=== PATIENT | male | born 1940 | race Caucasian/White ===

== ENCOUNTER 2017-09-18 09:03 | Outpatient (RCR) | payer MEDICARE ==
[2017-10-22] MEDS ORDERED: WARF-48 PO (12:59)
[2017-10-22] MEDS ORDERED: FOLI0.4T2 PO (12:59)
[2017-10-22] MEDS ORDERED: FLUT1DIS27 IH (12:59)
[2017-10-22] MEDS ORDERED: MONT10TA21 PO (12:59)
[2017-10-22] MEDS ORDERED: ARFO15VI3 IH (12:59)
[2017-10-22] MEDS ORDERED: TERA5CAP3 PO (12:59)
[2017-10-22] MEDS ORDERED: CITA40TA19 PO (12:59)
[2017-10-22] MEDS ORDERED: WARF4TAB70 PO (12:59)
[2017-10-22] MEDS ORDERED: OMEP20CA12 PO (12:59)
[2017-10-22] MEDS ORDERED: TIOT18CA2 IH (12:59)
[2017-10-22] MEDS ORDERED: ASPI-586 PO (12:59)
[2017-10-22] MEDS ORDERED: RT-ALBUINH IH (12:59)
[2017-10-22] MEDS ORDERED: ATOR20TA66 PO (12:59)
[2017-10-22] MEDS ORDERED: GUAI120013 PO (12:59)
[2017-10-22] MEDS ORDERED: SOTA80TA PO (12:59)
[2017-10-22] MEDS ORDERED: IPRA0.2S51 IH (12:59)
[2017-10-22] MEDS ORDERED: FEXO180T84 PO (12:59)
[2017-10-22] MEDS ORDERED: [UNRECOGNIZED DRUG - CODE] PO (12:59)
== END 2017-12-17 | disposition home or self-care (01) ==
LOC: CARD 09:03
PROVIDERS: ATTEND Internal Medicine Interventional Cardiology
DX: I48.0 Paroxysmal atrial fibrillation (principal); I25.10 Atherosclerotic heart disease of native coronary artery without angina pectoris; R06.00 Dyspnea, unspecified
CPT/HCPCS: 93225; 93226

== ENCOUNTER → 2017-09-18 | Outpatient (CLI) | payer MEDICARE | LOC: CARD 08:54 | PROVIDERS: ATTEND Internal Medicine Interventional Cardiology | DX: I48.0 Paroxysmal atrial fibrillation (principal); I25.10 Atherosclerotic heart disease of native coronary artery without angina pectoris; R06.00 Dyspnea, unspecified | CPT/HCPCS: 93306 ==

== ENCOUNTER 2017-10-22 05:57 | Outpatient (CLI) | payer MEDICARE ==
[~2017-10-22] VITALS: Ht 177.8 cm; Wt 90.7 kg
[2017-10-22] MEDS ORDERED: FLUT1DIS27 IH (12:59)
[2017-10-22] MEDS ORDERED: CITA40TA19 PO (12:59)
[2017-10-22] MEDS ORDERED: WARF-48 PO (12:59)
[2017-10-22] MEDS ORDERED: [UNRECOGNIZED DRUG - CODE] PO (12:59)
[2017-10-22] MEDS ORDERED: IPRA0.2S51 IH (12:59)
[2017-10-22] MEDS ORDERED: ASPI-586 PO (12:59)
[2017-10-22] MEDS ORDERED: WARF4TAB70 PO (12:59)
[2017-10-22] MEDS ORDERED: FOLI0.4T2 PO (12:59)
[2017-10-22] MEDS ORDERED: GUAI120013 PO (12:59)
[2017-10-22] MEDS ORDERED: RT-ALBUINH IH (12:59)
[2017-10-22] MEDS ORDERED: ATOR20TA66 PO (12:59)
[2017-10-22] MEDS ORDERED: OMEP20CA12 PO (12:59)
[2017-10-22] MEDS ORDERED: SOTA80TA PO (12:59)
[2017-10-22] MEDS ORDERED: TIOT18CA2 IH (12:59)
[2017-10-22] MEDS ORDERED: MONT10TA21 PO (12:59)
[2017-10-22] MEDS ORDERED: FEXO180T84 PO (12:59)
[2017-10-22] MEDS ORDERED: TERA5CAP3 PO (12:59)
[2017-10-22] MEDS ORDERED: ARFO15VI3 IH (12:59)
== END 2017-10-22 13:02 ==
LOC: PREOP 05:57
PROVIDERS: ATTEND Surgery
DX: Z01.818 Encounter for other preprocedural examination (principal); Z12.11 Encounter for screening for malignant neoplasm of colon

== ENCOUNTER 2017-10-28 08:18 | Day surgery (SDC) | payer MEDICARE ==
[~2017-10-28] VITALS: Ht 177.8 cm; Wt 90.7 kg
[~2017-10-28 08:18] MED LIST: ARFO15VI3 IH; ASPI-586 PO; ATOR20TA66 PO; CITA40TA19 PO; FEXO180T84 PO; FLUT1DIS27 IH; FOLI0.4T2 PO; GUAI120013 PO; IPRA0.2S51 IH; MONT10TA21 PO; OMEP20CA12 PO; RT-ALBUINH IH; SOTA80TA PO; TERA5CAP3 PO; TIOT18CA2 IH; WARF-48 PO; WARF4TAB70 PO; [UNRECOGNIZED DRUG - CODE] PO
--- OUTSIDE RECORDS SUMMARY | 2017-10-28 08:23 | XMS REPORT | Continuity of Care Document ---
Author Author [facility] Organization [facility] Address Unknown Phone Unavailable Care Team Providers Care Scooping Machine Tender Name Role Phone Colt Ariel E Unavailable Insurance Providers Payer Name Policy Number Subscriber Name Relationship MEDICARE INPT AND OUTPT [facility] [id number] DESI HARO SELF / SAME PATIENT [facility] [id number] DESI HARO SELF / SAME PATIENT Advance Directives Directive Response Recorded Date/Time Advance Directives: Yes 09/13/16 12:17pm Type: Living Will 09/13/16 12:17pm Chief Complaint and Reason for Visit Reason for Visit ACUTE Problems Active Medical Problems Problem Onset Date Recorded Date Status COPD exacerbation Unknown 09/13/16 Active Medications Current Home Medications Medication Dose Units Route Directions Days/Qty Instructions Start Date Albuterol (Albuterol 0.083% Neb Soln) 2.5 MG/3 ML VIAL.NEB 2.5 MG IH As needed PRN wheezing Albuterol (Ventolin HFA) 90 MCG/ACTUATION INHALER 2 PUFF IH Four times daily Albuterol/Ipratropium (Albuterol/Ipratripium Nebule) 3 MG/0.5 MG VIAL 1 VIAL IH Four times daily 1 (3 MG-0.5 MG/3 ML=1 VIAL) 09/16/16 Arformoterol Tartrate (Brovana) 15 MCG/2 ML VIAL 15 MCG IH Twice daily Aspirin (Aspir-Low) 81 MG TABLET. 81 MG PO Once daily Atorvastatin (Lipitor) 40 MG TABLET 40 MG PO At bedtime Citalopram HBr (CeleXA) 40 MG TABLET 40 MG PO Once daily Fexofenadine Hydrochloride (Estefania) 180 MG TAB 180 MG PO Once daily Fluticasone Propionate 16 GM SPRAY.SUSP 2 SPRAY NIRMALA Twice daily Fluticasone/Salmeterol (Advair 500-50 Diskus) 1 EACH BLST.W.DEV 1 PUFF INH Twice daily Folic Acid (Folic Acid 400MCG) 0.4 MG TAB 400 MCG PO Once daily Montelukast Sodium (Singulair 10MG) 10 MG TAB 10 MG PO At bedtime Multivitamin (Duo-Kaps) 1 CAP CAP 1 TAB PO Once daily Nitroglycerin (Nitrostat .4mg Sl) 0.4 MG/TAB TAB.SUBL 0.4 TAB SL See instructions PRN CHEST PAIN 1 TAB Q 5 MIN FOR CHEST PAIN, UP TO 3 TABS. OXYMETAZOLINE HCL (Afrin) 15 ML SPRAY 30 ML NS Three times per day Omeprazole (Prilosec) 20 MG CAPSULE 20 MG PO At bedtime SOTALOL HCL (Sotalol) 120 MG TABLET 120 MG PO Twice daily Terazosin Hydrochloride (Terazosin Hcl) 5 MG TAB 5 MG PO At bedtime Tiotropium [place] (Spiriva) 18 MCG CAPSULE 1 CAP IH Once daily Warfarin (Coumadin 5MG) 5 MG TABLET 5 MG PO Once daily guaiFENesin ER (Mucinex) 600 MG TAB.ER.12H 600 MG PO Twice daily predniSONE 20 MG TABLET 20 MG PO Once daily 21 3 tabs x3 days, 2 tabs x3 days, 1 tab x3 days, 1/2 tab x3 days 09/16/16 Past Home Medications Medication Directions Ordered Status Albuterol (Ventolin Hfa Inhaler) Inh Inh, 2 Puff Nirmala Four times daily Unknown Discontinued Aspirin 325 Mg Tablet Tablet, 325 Mg Po Once daily Unknown Discontinued Fexofenadine Hcl (Estefania 180MG) 180 Mg Tablet Tablet, 180 Mg Po Once daily Unknown Discontinued Metoprolol Succinate (Toprol Xl 25MG) 25 Mg Tab.er.24h Tab.er.24h, 25 Mg Po At bedtime Unknown Discontinued Levofloxacin (Levaquin) 500 Mg Tablet Tablet, 500 Mg Po Once daily Unknown Discontinued Prednisone 20 Mg Tablet Tablet, 60 Mg Po Unknown Discontinued Family History Relationship Name Date of Condition Age ( At Onset ) Cause of Age ( At ) Age Gender Recorded Date/Time MOTHER Family history of mental disorder Heart attack F 05/20 1501 MOTHER Family history of ischemic heart disease or other disease of circulatory system Heart attack F 09/13/16 1501 Social History Problem Response Recorded Date Exposure to Occupational hazards: N 09/13/16 Query Response Start Date Stop Date Smoking status: Current every day smoker Hospital Discharge Instructions Providers Instructions Provider's Instructions 1. Prednisone taper as directed. 2. Use nebulizer 4 times daily until seen by Dr. Gregory. 3. No antibiotics necessary this is a acute flare of your chronic COPD. 4. Use the insentive spirometer and acapella at least 4 times per day. 5. Continue the Mucinex as well. Activity As tolerated Discharge Diet Regular Follow up Appointment Dr. Gregory FridaySep 23 at 9am Plan of Care - Discharge Problem: Shortness of breath Goal: Independent self care Instructions: Follow discharge instructions from provider Plan of Care Discharge Date 09/16/16 Disposition HOME, SELF CARE, ASST LIVING Prescriptions See Medications Section Care Plan and Goals See Discharge Instructions section Functional Status Query Response Date Recorded Paralysis: N September 16, 2016 7:55am Steady Gait: Y September 16, 2016 7:55am Weakness: N September 16, 2016 7:55am Hand Community Engagement Representative Equal: Y September 16, 2016 7:55am Contractures: N September 16, 2016 7:55am Alert: Y September 16, 2016 7:55am Oriented x4: Y September 16, 2016 7:55am Disoriented/Confused: N September 16, 2016 7:55am Drowsy: N September 16, 2016 7:55am Lethargic: N September 16, 2016 7:55am Unresponsive: N September 16, 2016 7:55am Allergies, Adverse Reactions, Alerts Allergen Type Severity Reaction Status Last Updated oxycodone Allergy Unknown Active 09/13/16 acetaminophen Allergy Unknown Active 09/13/16 Immunizations Name Date Given Type . Vaccine current Historical Vital Signs Vital Reading Collection Date/Time Result Blood Pressure 09/16/16 6:31am 119/77 Blood Pressure Source 09/16/16 6:31am Supine Patient Temperature 09/16/16 6:31am 97.8 Temperature Source 09/16/16 6:31am Oral Respiratory Rate 09/16/16 6:31am 18 Pulse Rate 09/16/16 6:31am 56 Pulse Location 09/16/16 6:31am Machine Bedside Pulse Oximetry 09/16/16 8:04am 95 Height 09/13/16 12:17pm 180.3 cm Height 09/13/16 12:17pm 5 ft 11 in Weight 09/13/16 12:17pm 94.2 kg Weight 09/13/16 12:17pm 207.3 lb Body Mass Index 09/13/16 12:17pm 29.0 Results Laboratory Results Test Name Result Units Flags Reference Collection Date/Time Result Date/ Time Comments Prothrombin Time 24.8 SECONDS H 9.0-12.0 09/16/16 7:32am 09/16/16 8: 03am INR International Normalized Ratio 2.5 09/16/16 7:32am 09/16/16 8: 03am White Blood Count 13.4 K/mm3 H 4.8-10.8 09/16/16 6:08am 09/16/16 7:16am Red Blood Count 4.17 M/mm3 L 4.20-5.60 09/16/16 6:08am 09/16/16 7:16am Hemoglobin 14.7 g/dL 13.5-18.0 09/16/16 6:08am 09/16/16 7:16am Hematocrit 41.2 % L 42.0-52.0 09/16/16 6:08am 09/16/16 7:16am Mean Corpuscular Volume 99 fl 78-100 09/16/16 6:08am 09/16/16 7:16am Mean Corpuscular Hemoglobin 35 pg H 27-31 09/16/16 6:08am 09/16/16 7: 16am Mean Corpuscular Hemoglobin Concent 36 g/dL 33-37 09/16/16 6:08am 09/16 7:16am Red Cell Distribution Width 12.9 % 11.5-14.5 09/16/16 6:08am 09/16/16 7 :16am Platelet Count 184 K/mm3 130-400 09/16/16 6:08am 09/16/16 7:16am Mean Platelet Volume 9.3 fl 7.4-10.4 09/16/16 6:08am 09/16/16 7:16am Differential Total Cells Counted 100 09/16/16 6:08am 09/16/16 7: 51am Band Neutrophils % 3 % 0-10 09/16/16 6:08am 09/16/16 7:51am Neutrophils % (Manual) 77 % H 42-75 09/16/16 6:08am 09/16/16 7:51am Lymphocytes 8 % *L 20-51 09/16/16 6:08am 09/16/16 7:51am Monocytes % (Manual) 12 % *H 3-10 09/16/16 6:08am 09/16/16 7:51am Platelet Estimate NORMAL NORMAL 09/16/16 6:08am 09/16/16 7:51am Target Cells 1+ 09/16/16 6:08am 09/16/16 7:51am Glucose Level 121 mg/dL H 75-110 09/16/16 6:08am 09/16/16 7:16am Blood Urea Nitrogen 16 mg/dL 9-20 09/16/16 6:08am 09/16/16 7:16am Creatinine 0.8 mg/dL 0.8-1.5 09/16/16 6:08am 09/16/16 7:16am Estimated GFR () 114 09/16/16 6:08am 09/16/16 7: 16am Estimated GFR (Non- 94 09/16/16 6:08am 09/16/16 7: 16am eGFR Interpretation: Chronic Kidney Disease=CKD CKD STAGE I > or=90 mL/min/1.73 square meters STAGE II 60 - 89 STAGE III 30 - 59 STAGE IV 15 - 29 STAGE V <15 NOTE: The MDRD Study equation has not been validated for use with the elderly (over 70 years of age), women, patients with serious comorbid conditions, or persons with extremes of body size, muscle mass, or nutritional status. BUN/Creatinine Ratio 20.9 6.0-26.0 09/16/16 6:08am 09/16/16 7:16am Sodium Level 140 mmol/L 137-145 09/16/16 6:08am 09/16/16 7:16am Potassium Level 3.9 mmol/L 3.6-5.0 09/16/16 6:08am 09/16/16 7:16am Chloride Level 103 mmol/L 98-107 09/16/16 6:08am 09/16/16 7:16am Carbon Dioxide Level 31 mmol/L H 22-30 09/16/16 6:08am 09/16/16 7:16am Calcium Level 8.4 mg/dL 8.4-10.2 09/16/16 6:08am 09/16/16 7:16am Arterial Blood pH 7.43 pH units 7.35-7.45 09/13/16 12:38pm 09/13/16 12: 52pm Arterial Blood Partial Pressure CO2 37 mmHg 34-45 09/13/16 12:38pm 05/20 12:52pm Arterial Blood Partial Pressure O2 66 mmHg L 75-85 09/13/16 12:38pm 05/20 12:52pm Arterial Blood Base Excess 0.4 mmHg -2-2 09/13/16 12:38pm 09/13/16 12: 52pm Arterial Blood HCO3 24 mmol/L -09/13/16 12:38pm 09/13/16 12:52pm White Blood Count 6.1 K/mm3 4.8-10.8 09/13/16 11:05am 09/13/16 11:21am Red Blood Count 4.76 M/mm3 4.20-5.60 09/13/16 11:05am 09/13/16 11:21am Hemoglobin 16.3 g/dL 13.5-18.0 09/13/16 11:05am 09/13/16 11:21am Hematocrit 48.0 % 42.0-52.0 09/13/16 11:05am 09/13/16 11:21am Mean Corpuscular Volume 101 fl H 78-100 09/13/16 11:05am 09/13/16 11: 21am Mean Corpuscular Hemoglobin 34 pg H 27-31 09/13/16 11:05am 09/13/16 11: 21am Mean Corpuscular Hemoglobin Concent 34 g/dL 33-37 09/13/16 11:05am 05/20 11:21am Red Cell Distribution Width 12.8 % 11.5-14.5 09/13/16 11:05am 09/13/16 11:21am Platelet Count 184 K/mm3 130-400 09/13/16 11:05am 09/13/16 11:21am Mean Platelet Volume 9.1 fl 7.4-10.4 09/13/16 11:05am 09/13/16 11:21am Absolute Neutrophils (auto) 50.1 % 42.0-75.2 09/13/16 11:05am 09/13/16 11:21am Lymphocytes % 25.6 % 20.0-51.0 09/13/16 11:05am 09/13/16 11:21am Monocytes % 14.2 % *H 1.0-10.0 09/13/16 11:05am 09/13/16 11:21am Eosinophils % 9.6 % *H 0.0-4.0 09/13/16 11:05am 09/13/16 11:21am Basophils % 0.2 % 0.0-2.0 09/13/16 11:05am 09/13/16 11:21am JON # 3.0 1.40-6.50 09/13/16 11:05am 09/13/16 11:21am Lymphocytes # 1.6 1.50-4.00 09/13/16 11:05am 09/13/16 11:21am Monocytes # 0.9 H 0.20-0.80 09/13/16 11:05am 09/13/16 11:21am Eosinophils # 0.6 H 0.04-0.40 09/13/16 11:05am 09/13/16 11:21am Basophils # 0.0 *L 0.02-0.10 09/13/16 11:05am 09/13/16 11:21am Glucose Level 98 mg/dL 75-110 09/13/16 11:05am 09/13/16 11:31am Blood Urea Nitrogen 9 mg/dL 9-20 09/13/16 11:05am 09/13/16 11:31am Creatinine 0.9 mg/dL 0.8-1.5 09/13/16 11:05am 09/13/16 11:31am Estimated GFR () 99 09/13/16 11:05am 09/13/16 11: 31am Estimated GFR (Non- 82 09/13/16 11:05am 09/13/16 11 :31am eGFR Interpretation: Chronic Kidney Disease=CKD CKD STAGE I > or=90 mL/min/1.73 square meters STAGE II 60 - 89 STAGE III 30 - 59 STAGE IV 15 - 29 STAGE V <15 NOTE: The MDRD Study equation has not been validated for use with the elderly (over 70 years of age), women, patients with serious comorbid conditions, or persons with extremes of body size, muscle mass, or nutritional status. BUN/Creatinine Ratio 10.5 6.0-26.0 09/13/16 11:05am 09/13/16 11:31am Sodium Level 141 mmol/L 137-145 09/13/16 11:05am 09/13/16 11:31am Potassium Level 4.6 mmol/L 3.6-5.0 09/13/16 11:05am 09/13/16 11:31am Chloride Level 100 mmol/L 98-107 09/13/16 11:05am 09/13/16 11:31am Carbon Dioxide Level 31 mmol/L H 22-30 09/13/16 11:05am 09/13/16 11: 31am Calcium Level 8.9 mg/dL 8.4-10.2 09/13/16 11:05am 09/13/16 11:31am Procedures No Known History of Procedures. Encounters Encounter Location Arrival/Admit Date Discharge/Depart Date Attending Provider Discharged Inpatient [facility] 09/13/16 11:59am 09/16/16 9:13am Ariel Gregory Registered Clinical [facility] 09/13/16 10:59am RICHY LUNDBERG APRN Encounter Diagnosis Onset Date COPD exacerbation
--- OUTSIDE RECORDS SUMMARY | 2017-10-28 08:23 | XMS REPORT | Continuity of Care Document ---
[facility] Organization [facility]. Address Unknown Phone Unavailable Care Team Providers Care Dialysis Patient Care Technician Name Role Phone Ariel Gregory Unavailable Insurance Providers Payer Name Policy Number Subscriber Name Relationship MEDICARE INPT & OUTPT [id number] DESI HARO SELF / SAME PATIENT [facility] [id number] DESI HARO SELF / SAME PATIENT Advance Directives Directive Response Recorded Date/Time Type: Durable Power of Injection Maintenance Technician 03/15/16 8:54am If Other explain: Health care decisions - said copy should be in chart 03/15/16 8:54am Chief Complaint and Reason for Visit Reason for Visit DIRECT ADMIT Problems Active Medical Problems Problem Onset Date Recorded Date Status Atrial fibrillation 12/26/15 12/26/15 Active TIA (transient ischemic attack) Unknown 12/26/15 Active Atrial fibrillation and flutter Unknown 12/26/15 Active Medications Current Home Medications Medication Dose Units Route Directions Days/Qty Instructions Start Date Albuterol (Ventolin HFA) 90 MCG/PUFF MDI 2 PUFF IH Every six hours PRN WHEEZING Arformoterol (Brovana Neb Soln) 15 MCG/2 ML AMPUL.NEB. 15 MCG IH Twice daily Aspirin (Aspirin Chewable) 81 MG TAB.CHEW 81 MG PO Once a day 30 12/26 Atorvastatin (Lipitor) 40 MG TABLET 40 MG PO Daily at bedtime Citalopram (CeleXA) 40 MG TABLET 40 MG PO Once a day Fexofenadine (Estefania) 180 MG TABLET 180 MG PO Once a day Fluticasone Propionate (Flonase Nasal [place]) 16 G BOTTLE 2 SPRAY NS Twice daily Fluticasone/Salmeterol (Advair Diskus) 500 MCG/50 MCG DISKUS 1 CAP IH Twice daily Folic Acid 400 MCG TABLET 400 MCG PO Once a day Montelukast (Singulair) 10 MG TABLET 10 MG PO Daily at bedtime Multimineral/Multivitamin (Centrum Silver) 1 EACH TABLET 1 EACH PO Once a day Nicotine (Nicoderm CQ) 21 MG/24 HR PATCH 21 MG TD Once a day Change daily in the AM, remove old patch Omeprazole (PriLOSEC) 20 MG CAPSULE 20 MG PO Once a day Sotalol (Betapace) 120 MG TABLET 120 MG PO Twice daily Terazosin (Hytrin) 5 MG CAPSULE 5 MG PO Daily at bedtime Tiotropium (Spiriva Handihaler) 18 MCG CAP.INH 1 CAP IH Once a day 30 Warfarin (Coumadin) 2.5 MG TABLET 2.5 MG PO MoWe@2100 For BLOOD THINNER Warfarin (Coumadin) 5 MG TABLET 5 MG PO TUTHSASU@2100 guaiFENesin ER (Mucinex) 1,200 MG TAB.SR.12H 1,200 MG PO Twice daily Past Home Medications Medication Directions Ordered Status Aspirin (Aspirin E.c.) 325 Mg Ect Ect, 325 Mg Po Once daily Unknown Discontinued Aspirin Ec (Ecotrin) 325 Mg Tablet.ec Tablet.ec, 325 Mg Po Once a day Unknown Discontinued Atorvastatin Calcium (Apilrnf02fl) 40 Mg Tab Tab, 40 Mg Po Once daily Unknown Discontinued Calcium Carbonate 500 Mg Ctb Ctb, 500 Mg Po Once daily Unknown Discontinued Citalopram (Celexa) 40 Mg Tablet Tablet, 40 Mg Po Once daily Unknown Discontinued Fluticasone Propionate/Sal[place] (Advair 250/50 Diskus) 28 Diskus Disk.w.dev Disk.w.dev, 28 Diskus Ih Twice daily Unknown Discontinued Fexofenadine (Estefania) 180 Mg Tablet Tablet, 180 Mg Po Once daily Unknown Discontinued Folic Acid (Folic Acid 1MG) 1 Mg Tab Tab, 1 Mg Po Once daily Unknown Discontinued Metoprolol (Er) Succinate (Toprol Xl) 50 Mg Tablet Tablet, 50 Mg Po At bedtime Unknown Discontinued Metoprolol Succinate (Toprol Xl) [address], 50 Mg Po Once daily Unknown Discontinued Montelukast Sodium (Singulair 10MG) 10 Mg Tab Tab, 10 Mg Po Once daily Unknown Discontinued Multimineral/Multivitamin (Centrum Silver) 1 Tab Tab Tab, 1 Tab Po Once daily Unknown Discontinued Omeprazole (Prilosec) 20 Mg Capsule Capsule, 20 Mg Po Once daily Unknown Discontinued Terazosin Hydrochloride (Terazosin) 5 Mg Cap Cap, 5 Mg Po At bedtime Unknown Discontinued Family History Relationship Name Date of Condition Age ( At Onset ) Cause of Age ( At ) Age Gender Recorded Date/Time Family history of malignant neoplasm Unknown 12/26/15 2308 Social History Problem Response Recorded Date Exposure to Occupational hazards: Y 03/15/16 Occupation/Former Occupation: [employer]-Retired 03/15/16 Hospital Discharge Instructions Plan of Care Problem: AFIB Goal: TO CONVERT TO NSR Instructions: CONTINUE TO TAKE MEDICATION PRESCRIBED Plan of Care Discharge Date 03/17/16 Disposition HOME, SELF-CARE or ASST LIVING Instructions/Education Provided Nicotine (Absorbed through the skin) Sotalol (By mouth) Prescriptions See Medications Section Functional Status Query Response Date Recorded Paralysis: N March 17, 2016 9:00am Steady Gait: Y March 17, 2016 9:00am Weakness: N December 18, 2007 8:00am Hand Manager Leadership Development Equal: Y March 17, 2016 9:00am Contractures: N March 17, 2016 9:00am Alert: Y December 18, 2007 8:00am Disoriented/Confused: N December 18, 2007 8:00am Drowsy: N December 18, 2007 8:00am Lethargic: N December 18, 2007 8:00am Unresponsive: N March 17, 2016 9:00am Allergies, Adverse Reactions, Alerts Allergen Type Severity Reaction Status Last Updated oxycodone Allergy Intermediate PANIC ATTACKS Active 03/15/16 Immunizations No Known History of Immunizations. Vital Signs Vital Reading Collection Date/Time Result Height 03/15/16 9:19am 182.9 cm Height 03/15/16 9:19am 6 ft 00 in Blood Pressure 03/17/16 7:42am 124/79 Blood Pressure Source 03/17/16 11:49am DISCHARGED Patient Temperature 03/17/16 7:42am 98.0 Temperature Source 03/17/16 7:42am Oral Respiratory Rate 03/17/16 7:42am 20 Pulse Rate 03/17/16 7:42am 78 Pulse Location 03/17/16 7:42am Dynamap Bedside Pulse Oximetry 03/17/16 7:42am 96 Weight 03/15/16 9:19am 90.8 kg Weight 03/15/16 9:19am 200 lb 2.88 oz Body Mass Index 03/15/16 9:19am 27.1 Results Laboratory Results Test Name Result Units Flags Reference Collection Date/Time Result Date/ Time Comments Prothrombin Time 30.1 SECONDS H 9.7-12.8 03/20/16 11:53am 03/20/16 12: 29pm INR International Normalized Ratio 2.7 0.8-3.0 03/20/16 11:53am 03/20 12:29pm Potassium Level 4.3 mmol/L 3.4-5.0 03/20/16 11:53am 03/20/16 12:36pm Thyroid Stimulating Hormone (TSH) 1.460 uIU/mL 0.465-4.680 03/20/16 11: 53am 03/20/16 12:57pm White Blood Count 5.6 K/mm3 4.8-10.8 03/15/16 8:36am 03/15/16 8:52am Red Blood Count 4.73 M/mm3 4.20-5.60 03/15/16 8:36am 03/15/16 8:52am Hemoglobin 16.4 g/dl 13.5-18.0 03/15/16 8:36am 03/15/16 8:52am Hematocrit 47.8 % 42.0-52.0 03/15/16 8:36am 03/15/16 8:52am Mean Corpuscular Volume 101 fl H 80.0-100.0 03/15/16 8:36am 03/15/16 8: 52am Mean Corpuscular Hemoglobin 35 pg H 27.0-31.0 03/15/16 8:36am 03/15/16 8 :52am Mean Corpuscular Hemoglobin Concent 34 g/dl 33.0-37.0 03/15/16 8:36am 03/15/16 8:52am Red Cell Distribution Width 12.7 % 11.5-14.5 03/15/16 8:36am 03/15/16 8 :52am Platelet Count 189 K/mm3 130-400 03/15/16 8:36am 03/15/16 8:52am Mean Platelet Volume 9.2 fl 7.4-10.4 03/15/16 8:36am 03/15/16 8:52am Prothrombin Time 23.3 SECONDS H 9.7-12.8 03/15/16 8:36am 03/15/16 9: 03am INR International Normalized Ratio 2.0 0.8-3.0 03/15/16 8:36am 9:03am Glucose Level 99 mg/dL 74-106 03/15/16 8:36am 03/15/16 9:03am Blood Urea Nitrogen 11 mg/dL 9-20 03/15/16 8:36am 03/15/16 9:03am Creatinine 0.85 mg/dL 0.66-1.25 03/15/16 8:36am 03/15/16 9:03am Estimated GFR () 106 03/15/16 8:36am 03/15/16 9: 03am Estimated GFR (Non- 88 03/15/16 8:36am 03/15/16 9: 03am eGFR Interpretation: Chronic Kidney Disease=CKD CKD STAGE [...] body size, muscle mass, or nutritional status. Sodium Level 138 mmol/L 137-145 03/15/16 8:36am 03/15/16 9:03am Potassium Level 4.6 mmol/L 3.4-5.0 03/15/16 8:36am 03/15/16 9:03am Chloride Level 105 mmol/L 98-107 03/15/16 8:36am 03/15/16 9:03am Carbon Dioxide Level 24 mmol/L 22-30 03/15/16 8:36am 03/15/16 9:03am Anion Gap 10 mmol/L 7-16 03/15/16 8:36am 03/15/16 9:03am Calcium Level 8.2 mg/dL L 8.4-10.2 03/15/16 8:36am 03/15/16 9:03am Calcium Adjusted for Albumin 8.4 mg/dL 8.4-10.2 03/15/16 8:36am 9:03am Magnesium Level 1.9 mg/dL 1.6-2.3 03/15/16 8:36am 03/15/16 9:03am Serum Total Protein 7.0 gm/dL 6.4-8.2 03/15/16 8:36am 03/15/16 9:03am Albumin 3.8 gm/dL 3.5-5.0 03/15/16 8:36am 03/15/16 9:03am Total Bilirubin 0.7 mg/dL 0.0-1.0 03/15/16 8:36am 03/15/16 9:03am Aspartate Amino Transf (AST/SGOT) 28 U/L 15-37 03/15/16 8:36am 9:03am Alanine Aminotransferase (ALT/SGPT) 25 U/L 21-72 03/15/16 8:36am 9:03am Alkaline Phosphatase 53 U/L 50-136 03/15/16 8:36am 03/15/16 9:03am [facility] Name: DESI HARO [place], [place] Physician: Miguel Prince MD Admit: 03/15/16 : 40 Status: ADM IN Room: 358 History and Physical Examination DICTATING PROVIDER: Miguel Prince MD HISTORY OF PRESENT ILLNESS: The patient is a 75-year-old male with a previous history of coronary artery disease with previous intervention in the circumflex and right coronary arteries. He has a long history of smoking and COPD as well as sleep apnea. He had a recent TIA and was found to be in atrial fibrillation at that time. His echocardiogram was fairly benign. He was anticoagulated and placed on Toprol for rate control. He is now admitted for sotalol initiation. He has done relatively well without syncope or near syncope. He denies significant chest pain or dyspnea. He has had no significant claudication or leg edema. ALLERGIES: Percocet MEDICATIONS: As per the medication reconciliation form PAST MEDICAL HISTORY, PAST SURGICAL HISTORY, SOCIAL HISTORY, FAMILY HISTORY, AND 10-POINT REVIEW OF SYSTEMS: Otherwise without significant positives except as noted in the HPI as well as the recent office visit with Pratima Smith APRN, on 02/07/2016 as well as my previous evaluation of him during his hospitalization for TIA. His last echocardiogram was in 12/2015. It showed biatrial enlargement with mild valvular disease and normal left ventricular function. Carotids did not show critical abnormalities. PHYSICAL EXAMINATION: He is alert, oriented x 3, in no apparent distress. He is afebrile. His heart rate is 80 and irregular. Respiratory rate is 20. Blood pressure 111/ 74. Oxygen saturation is 97%. The eyes, nose, mouth, and ears are benign. He has poor dentition. There is no jugular venous distention. There are no carotid bruits. Mucous membranes are moist. Lung reveals basilar rhonchi without rales or wheezes. There is no use of accessory muscles of respiration. PMI is nondisplaced. There is no S3 or S4 noted. There is a systolic murmur. There is no rub. Abdomen is soft and nontender. It is obese. Normal active bowels sounds. There is no rebound or guarding. There is no clubbing, cyanosis, or edema. Distal pulses are intact. Mood and affect are benign. There is no focal neurologic finding. EKG shows atrial fibrillation. I have reviewed this. LABORATORY VALUES: Normal white blood count and hemoglobin. His INR today is 2. BUN and creatinine are normal. ASSESSMENT/PLAN: Overall he has atrial fibrillation of unknown duration. At this point, we will start him on sotalol. We will probably consider cardioversion after sotalol loading. We will make additional recommendations depending on his clinical course. #[id number] CC: Ariel Gregory Signed By: Miguel Prince MD <<Signature on File>> 03/15/16 1654 [facility] Name: DESI HARO [place], [place] Physician: Miguel Prince MD Admit: 03/15/16 : 40 Status: ADM IN Room: 358 History and Physical Examination Dictated By: Miguel Prince MD D/ 1423 Transcribed: PUSHPA KENDRICK D/ 1429 History and Physical Exam End Of Report Procedures No Known History of Procedures. Encounters Encounter Location Arrival/Admit Date Discharge/Depart Date Attending Provider Departed [facility] 03/20/16 11:36am 03/20/16 2:47pm Miguel Prince MD Discharged Inpatient [facility] 03/15/16 8:13am 11:54am Miguel Prince MD Encounter Diagnosis Onset Date Atrial fibrillation 12/26/15 TIA (transient ischemic attack) Atrial fibrillation and flutter
--- OUTSIDE RECORDS SUMMARY | 2017-10-28 08:23 | XMS REPORT | Continuity of Care Document ---
Author Author [facility]. Organization [facility]. Address Unknown Phone Unavailable Care Team Providers Care Stage Producer Name Role Phone Ariel Gregory Unavailable Insurance Providers Payer Name Policy Number Subscriber Name Relationship MEDICARE INPT & OUTPT [id number] DESI HARO SELF / SAME PATIENT [facility] [id number] DESI HARO SELF / SAME PATIENT Advance Directives Directive Response Recorded Date/Time Advance Directives: Yes 03/15/16 8:54am Type: Durable Power of Dealer Compliance Representative 03/15/16 8:54am If Other explain: Health care [...] Once a day Fluticasone Propionate (Flonase Nasal [place]) 16 G BOTTLE 2 SPRAY NS Twice [...] Once a day Unknown Discontinued Atorvastatin Calcium ([id number]) 40 Mg Tab Tab, 40 Mg Po [...] Family history of malignant neoplasm Unknown 12/26/15 230 Social History Problem Response Recorded Date Exposure to Occupational hazards: Y 03/15/16 Occupation/Former Occupation: [employer]-Retired 03/15/16 Query Response Start Date Stop Date Smoking status: Current every day smoker Hospital Discharge Instructions Plan of Care Problem: AFIB Goal: TO CONVERT TO NSR Instructions: CONTINUE TO TAKE MEDICATION PRESCRIBED Plan of Care Discharge Date 03/17/16 Disposition HOME, SELF-CARE or ASST LIVING Instructions/Education Provided Nicotine (Absorbed through the skin) Sotalol (By mouth) Prescriptions See Medications Section Care Plan and Goals See Discharge Instructions section Functional Status Query Response Date Recorded Paralysis: N March 17, 2016 9:00am Steady Gait: Y March 17, 2016 9:00am Weakness: N December 18, 2007 8:00am Hand Lease Purchase Driver Equal: Y March 17, 2016 9:00am Contractures: N March 17, 2016 9:00am Alert: Y December 18, 2007 8:00am Oriented x4: Y March 17, 2016 9:00am Disoriented/Confused: N December 18, 2007 8:00am Drowsy: N December 18, 2007 8:00am Lethargic: N December 18, 2007 8:00am Unresponsive: N March 17, 2016 9:00am Allergies, Adverse Reactions, Alerts Allergen Type Severity Reaction Status Last Updated oxycodone Allergy Intermediate PANIC ATTACKS Active 03/15/16 Immunizations Name Date Given Type Tetanus Less than 5 years ago Historical Vital Signs Vital Reading Collection Date/Time Result Blood Pressure 03/17/16 7:42am 124/79 Blood Pressure Source 03/17/16 11:49am DISCHARGED Patient Temperature 03/17/16 7:42am 98.0 Temperature Source 03/17/16 7:42am Oral Respiratory Rate 03/17/16 7:42am 20 Pulse Rate 03/17/16 7:42am 78 Pulse Location 03/17/16 7:42am Dynamap Bedside Pulse Oximetry 03/17/16 7:42am 96 Height 03/15/16 9:19am 182.9 cm Height 03/15/16 9:19am 6 ft 00 in Weight 03/15/16 9:19am 90.8 kg Weight 03/15/16 9:19am 200 lb 2.88 oz Body Mass Index 03/15/16 9:19am 27.1 Results Laboratory Results Test Name Result Units Flags Reference Collection Date/Time Result Date/ Time Comments White Blood Count 5.6 K/mm3 4.8-10.8 03/15/16 [...] U/L 50-136 03/15/16 8:36am 03/15/16 9:03am [facility] Name: DESI HARO [place], [place] Physician: Miguel Prince MD Admit: 03/15/16 [...] additional recommendations depending on his clinical course. #[id number] CC: Ariel Gregory Signed By: Miguel Prince MD <<Signature on File>> 03/15/161653 [facility] Name: DESI HARO [place], [place] Physician: Miguel Prince MD Admit: 03/15/16 : 40 Status: ADM IN Room: 358 History and Physical Examination Dictated By: Miguel Prince MD D/ 1423 Transcribed: PUSHPA KENDRICK D/ 1429 History and Physical Exam End Of Report Procedures No Known History of Procedures. Encounters Encounter Location Arrival/Admit Date Discharge/Depart Date Attending Provider Discharged Inpatient [facility] 03/15/16 8:13am 11:54am Miguel Prince MD Encounter Diagnosis Onset Date Atrial fibrillation 12/26/15 TIA (transient ischemic attack) Atrial fibrillation and flutter
[2017-10-28] MEDS ORDERED: LACTATED RINGERS 1,000 ML IV STA (08:38)
[2017-10-28 08:58] VITALS: BP 118/94
[2017-10-28] MEDS ORDERED: MIDAZOLAM 2 MG/2 ML (VERSED) VIAL ONE (09:49)
[2017-10-28] MEDS ORDERED: PROPOFOL INJECTION 50 ML IV ONE (09:49)
--- NOTE | 2017-10-28 10:12 | Progress Note-Pre Operative ---
Pre-Operative Progress Note H&P Reviewed The H&P was reviewed, patient examined and no changes noted. Date Seen by Provider: Oct 28, 2017 Time Seen by Provider: 10:00 Date H&P Reviewed: Oct 28, 2017 Time H&P Reviewed: 10:00 Pre-Operative Diagnosis: hemorrhoids, blood in stool BOB ROBLERO DO Oct 28, 2017 10:12
--- NOTE | 2017-10-28 10:56 | Progress Note-Post Operative ---
Post-Operative Progess Note Surgeon (s)/Medical Translator (s) Surgeon BOB ROBLERO DO Medical Translator: na Pre-Operative Diagnosis hemorrhoids, blood in stool Post-Operative Diagnosis colon polyps transversex3, descending x1 diverticulosis internal hemorrhoid Procedure & Operative Findings Date of Procedure 10/28/17 Procedure Performed/Findings colonoscopy with hot bx polypectomy x 4 Anesthesia Type per banquet bartender Estimated Blood Loss Estimated blood loss (mL): none Specimens/Packing Specimens Removed colon polyps BOB ROBLERO DO Oct 28, 2017 10:56
--- NOTE | 2017-10-28 10:58 | Discharge Inst-Simple/Standard ---
Discharge Inst-Standard Patient Instructions/Follow Up Plan of Care/Instructions/FU: 2 weeks Presley. Restart coumadin in 2 days. Activity as Tolerated: Yes Discharge Diet: Regular Diet (high fiber) BOB ROBLERO DO Oct 28, 2017 10:58
[2017-10-28 11:15] VITALS: BP 107/64
[2017-10-28 11:40] VITALS: BP 118/60
--- NOTE | 2017-10-28 11:50 | Anesthesia-General Post-Op ---
MAC Patient Condition Mental Status/LOC: Same as Preop Cardiovascular: Satisfactory Nausea/Vomiting: Absent Respiratory: Satisfactory Pain: Controlled Complications: Absent Post Op Complications Complications None Follow Up Care/Instructions Patient Instructions None needed. Anesthesiology Discharge Order Discharge Order Patient is doing well, no complaints, stable vital signs, no apparent adverse anesthesia problems. No complications reported per nursing. ABIODUN CHENEY CRNA Oct 28, 2017 11:50
--- NOTE | 2017-10-28 14:20 | OPERATIVE REPORT ---
DATE OF SERVICE: 10/28/2017 PREOPERATIVE DIAGNOSIS: Hemorrhoids, blood in stools. POSTOPERATIVE DIAGNOSIS: Colon polyps, transverse colon x3 descending colon x1 and diverticulosis, internal hemorrhoid. PROCEDURE: Colonoscopy with hot biopsy polypectomy x4. SURGEON: Bob Sherwood DO ANESTHESIA: Per NURSE MIDWIFE. ESTIMATED BLOOD LOSS: None. COMPLICATIONS: None. INDICATIONS: The patient is a 77-year-old male due for a colonoscopy and has had some blood in the stools. He also has some hemorrhoids that is kind of bothersome as well. He understands the risks and benefits of procedure and wished to proceed with procedure. Consent was signed in the chart. DESCRIPTION OF PROCEDURE: The patient was taken to the endoscopy suite, placed in left lateral recumbent position. Timeout was performed. Digital rectal exam was performed noting a left lateral internal hemorrhoid. Scope was inserted in the rectum advanced all the way to the cecum with minimal difficulty. Prep was adequate. There were no polyps, mass or ulcerations in the cecum. There were no polyps in the ascending colon. There were 3 polyps within the transverse colon which hot biopsy polypectomy was performed. Scope was then slowly retracted back to the descending colon, which a fourth polyp was present, which hot biopsy polypectomy was performed. There were no polyps, mass or ulcerations throughout this area. Once in the sigmoid colon, we began entering some areas of diverticulosis. There were no polyps, mass or ulcerations. Once in the rectum, scope was retroflexed noting some internal hemorrhoidal disease. No other pathology noted. Scope was returned to its normal position, slowly withdrawn until completely removed. The patient tolerated the procedure well without any complications and taken to recovery room in stable condition. RECOMMENDATIONS: The patient will need repeat colonoscopy in 3 years. If he has any problems prior to that, he should be reevaluated at that time. We will discuss hemorrhoid treatment if he wishes to pursue. The patient will follow up in the office in 2 weeks to discuss pathology and further plan. Job ID: [id number] DocumentID: [id number] Dictated Date: 10/28/2017 11:01:17 Publications Production Supervisor Date: 10/28/2017 14:19:44 Dictated By: BOB SHERWOOD DO
== END 2017-10-28 11:45 | disposition home or self-care (01) ==
LOC: ENDO 08:18
PROVIDERS: ATTEND Surgery
DX: D12.3 Benign neoplasm of transverse colon (principal); D12.4 Benign neoplasm of descending colon; K57.30 Diverticulosis of large intestine without perforation or abscess without bleeding; K64.8 Other hemorrhoids; I48.0 Paroxysmal atrial fibrillation; J43.9 Emphysema, unspecified; G47.33 Obstructive sleep apnea (adult) (pediatric); E78.5 Hyperlipidemia, unspecified; J45.909 Unspecified asthma, uncomplicated; I25.10 Atherosclerotic heart disease of native coronary artery without angina pectoris; N40.0 Benign prostatic hyperplasia without lower urinary tract symptoms; M54.16 Radiculopathy, lumbar region; M54.12 Radiculopathy, cervical region; F17.210 Nicotine dependence, cigarettes, uncomplicated; I25.2 Old myocardial infarction; Z79.01 Long term (current) use of anticoagulants; Z79.82 Long term (current) use of aspirin; Z79.899 Other long term (current) drug therapy

== ENCOUNTER 2018-06-19 08:19 | Outpatient (RCR) | payer MEDICARE ==
[~2018-06-19 08:19] MED LIST changes: -ARFO15VI3 IH; +ARFO15VI3 NEB
[2018-09-03] MEDS ORDERED: NITR0.4T42 SL (09:29)
[2018-09-03] MEDS ORDERED: ATOR40TA70 PO (09:29)
[2018-09-03] MEDS ORDERED: WARF-47 PO (09:29)
[2018-09-03] MEDS ORDERED: SOTA80TA PO (09:29)
[2018-09-03] MEDS ORDERED: FLUT16SP22 NS (09:29)
[2018-09-03] MEDS ORDERED: WARF1TAB82 PO (09:29)
[2018-09-03] MEDS ORDERED: GUAI120013 PO (09:29)
[2018-09-03] MEDS ORDERED: ALBU2.5V4 NEB (09:33)
[2018-09-05] MEDS ORDERED: NICO-588 TD (12:20)
[2018-09-05] MEDS ORDERED: PRED10TA22 PO (12:20)
== END 2018-09-17 | disposition home or self-care (01) ==
LOC: CARD 08:19
PROVIDERS: ATTEND Internal Medicine Interventional Cardiology
DX: I48.0 Paroxysmal atrial fibrillation (principal)
CPT/HCPCS: 93225; 93226

== ENCOUNTER → 2018-08-13 | Outpatient (CLI) | payer MEDICARE ==
[~2018-08-13] VITALS: Ht 180.3 cm; Wt 93.4 kg
[~2018-08-13] MED LIST changes: +ARFO15VI3 IH; -ARFO15VI3 NEB; +CATHETER FLUSH 10 ML SYR IV PRN; +REGADENOSON 0.4 MG/5 ML SYR (LEXISCAN) IV ONE
[2018-08-13 08:50] VITALS: BP 109/77
[2018-08-13 09:06] VITALS: BP 133/89
[2018-08-13 09:07] VITALS: BP 151/105
--- NOTE | 2018-08-14 09:27 | Cardiology Stress Test Report ---
Stress Test Report Type of NM Stress Test: Test Type: LEXISCAN 0.4MG/5ML Date of Procedure/Referring: Date of Procedure: Aug 13, 2018 PCP Abraham Woodard MD Admitting Physician Chloe Miller DO Indications: shortness of breath Baseline Heart Rate: 55 Baseline Blood Pressure: Blood Pressure Systolic: 151 Blood Pressure Diastolic: 105 Baseline EKG: Baseline EKG: sinus rhythm Summary & Conclusion: Summary: The patient was brought to the stress lab after informed consent was taken. Stress test was performed according to the Lexiscan protocol. 0.4 mg of IV Lexiscan was given. Low-grade exercise was performed. Baseline EKG showed sinus rhythm at 55 BPM. Initial blood pressure was 109/77 mmHg. Maximum heart rate was 75 bpm and blood pressure 151/105 mmHg. Patient did not have any chest pain, arrhythmias or ST segment changes during the stress test. 10.37 mCi of Myoview were given for rest imaging and 30.2 mCi of Myoview given for stress imaging. Transient ischemic dilatation score 1.02 , EF 64 percent. Normal wall motion. Moderate size anterior reversible defect. Severe inferior apical reversible defect. SSS 10, SRS 5, SDS 5. Conclusion: Pharmacological stress test was negative for ischemia. Normal LV function with no wall motion abnormalities. Evidence of anterior and inferior ischemia - Coronary angiography is recommended. Abraham WOODARD MD Aug 14, 2018 9:27 am
== END ==
LOC: CARD 07:24
PROVIDERS: ATTEND Internal Medicine Interventional Cardiology
DX: I25.10 Atherosclerotic heart disease of native coronary artery without angina pectoris (principal); R06.00 Dyspnea, unspecified
CPT/HCPCS: 78452; 93017

== ENCOUNTER → 2018-09-28 | Outpatient (CLI) | payer MEDICARE ==
[~2018-09-28] MED LIST changes: +ALBU2.5V4 NEB; -ARFO15VI3 IH; +ARFO15VI3 NEB; +ATOR40TA70 PO; -CATHETER FLUSH 10 ML SYR IV PRN; +FLUT16SP22 NS; +NICO-588 TD; +NITR0.4T42 SL; +PRED10TA22 PO; -REGADENOSON 0.4 MG/5 ML SYR (LEXISCAN) IV ONE; +RT-ALBUTEROL SULF 2.5 MG/3 ML PRE-MIX VIAL INH ONE; +WARF-47 PO; +WARF1TAB82 PO
== END ==
LOC: RT 12:53
PROVIDERS: ATTEND Nurse Practitioner Family
DX: J44.9 Chronic obstructive pulmonary disease, unspecified (principal); G47.33 Obstructive sleep apnea (adult) (pediatric); R09.02 Hypoxemia; Z72.0 Tobacco use
CPT/HCPCS: 94060; 94726; 94729

== ENCOUNTER → 2018-11-12 | Outpatient (CLI) | payer MEDICARE ==
[~2018-11-12] MED LIST changes: -RT-ALBUTEROL SULF 2.5 MG/3 ML PRE-MIX VIAL INH ONE
== END ==
LOC: CARD 09:55
PROVIDERS: ATTEND Internal Medicine Interventional Cardiology
DX: R00.1 Bradycardia, unspecified (principal)
CPT/HCPCS: 93225; 93226

== ENCOUNTER 2018-12-03 11:03 | Day surgery (SDC) | payer MEDICARE ==
[2018-12-03] VITALS (12 sets, daily range): BP systolic 80–128; BP diastolic 46–72
[~2018-12-03] VITALS: Ht 180.3 cm; Wt 90.9 kg
[~2018-12-03 11:03] MED LIST changes: -SOTA80TA PO; +STL80T PO
--- OUTSIDE RECORDS SUMMARY | 2018-12-03 11:07 | XMS REPORT | Continuity of Care Document ---
Author Organization Unknown Address Unknown Allergies Active Description Code Type Severity Reaction Onset Reported/Identified Relationship to Patient Clinical Status Yes PERCOCET MODERATE UNKNOWN Yes MDX - Oxycodone X741 Drug Allergy Moderate HALLUCINATIONS 04/28/2012 Yes oxycodone [id number] Drug Allergy Unknown N/A 12/26/2015 Yes OXYCODONE-ACETAMINOPHEN 31460 DRUG N/A Other 02/07/2016 02/07/2016 Yes oxycodone [id number] Drug Allergy Moderate PANIC ATTACKS 03/15/2016 Yes acetaminophen [id number] Drug Allergy Unknown N/A 09/13/2016 Yes oxycodone [id number] Drug Allergy Unknown N/A 09/13/2016 Medications Medication Packaging Start Date Stop Date Route Dosage Sig IPRATROPIUM/ALBUTEROL INH SOLN (DUO-NEB INH SOLN) MLS 07/22/2017 07/29/2017 QID&0400,1000,1600,2200 Piperacillin-tazobactam IV 3.375Gm vial (Zosyn) GM 07/22/2017 07/29/2017 Q6H&0000,0600,1200,1800 METHYLPREDNISOLONE VIAL INJ 125 MG/2CC (SOLU-MEDROL VIAL) MG 07/22/2017 07/27/2017 Q6H&0600,1200,1800,2359 NICOTINE PATCH PAT 21 MG (NICODERM) MG 07/22/2017 07/28/2017 Daily&1900 FLUTICASONE NASAL INHALER MDI 50 MCG (FLONASE NOSE SPRAY) Dose(s) 07/22/2017 07/29/2017 BID&0800,2000 FLUTICASONE/SALMETEROL MDI 500 /50MCG (ADVAIR DISKUS) Dose(s) 07/22/2017 07/29/2017 BID&0800,2000 TERAZOSIN CAP 5 MG (HYTRIN) Dose(s) 07/22/2017 07/28/2017 QHS&2100 IPRATROPIUM/ALBUTEROL INH SOLN (DUO-NEB INH SOLN) MLS 07/22/2017 07/29/2017 PRN QID ACETAMINOPHEN TAB 500 MG (TYLENOL) MG 07/22/2017 08/05/2017 PRN Q6H IPRATROPIUM/ALBUTEROL INH SOLN (DUO-NEB INH SOLN) MLS 07/23/2017 07/29/2017 QID&0600,1100,1600,2100 SOTALOL TAB 120 MG (BETAPACE) Dose(s) 07/23/2017 07/29/2017 BID&0800,2000 TIOTROPIUM CAP 18 MCG (SPIRIVA) Dose(s) 07/23/2017 07/29/2017 Daily&0800 ASA 81MG ENTERIC COATED TAB 81 MG (BABY ASPIRIN EC) Dose(s) 07/23/2017 07/29/2017 Daily&0900 FEXOFENADINE TAB 180 MG (PEACE) Dose(s) 07/23/2017 07/29/2017 Daily&0900 CITALOPRAM TAB 20 MG (CELEXA) Dose(s) 07/23/2017 07/29/2017 Daily&0900 MONTELUKAST TAB 10 MG (SINGULAIR) Dose(s) 07/23/2017 07/29/2017 Daily&0900 ALPRAZOLAM TAB 0.5 MG (XANAX) MG 07/26/2017 PRN Q4H WARFARIN TAB 5 MG (COUMADIN) Dose(s) 07/23/2017 07/29/2017 QPM&1800 SOTALOL TAB 80 MG (BETAPACE) MG 07/29/2017 BID&0800,2000 LACTATED RINGERS 1000CC IV BAG INJ ml 11/24/2017 11/25/2017 CONTINUOUSEVERY 0 Hour IPRATROPIUM/ALBUTEROL INH SOLN (DUO-NEB INH SOLN) MLS 12/19/2017 12/19/2017 ONCE&1205 Problems Date Dx Coded Attending Type Code Diagnosis Diagnosed By 01/26/2015 Ariel Gregory V72.60 02/06/2015 Ariel Gregory V72.60 03/15/2015 Ariel Gregory V72.60 03/15/2015 Ditto, Ariel E A V72.60 04/03/2015 Ditto, Ariel E A V72.60 10/20/2015 Ditto, Ariel E A E78.2 10/20/2015 Ditto, Ariel E A I25.10 10/21/2015 Ditto, Ariel E A E78.2 10/21/2015 Ditto, Ariel E A I25.10 10/21/2015 Ditto, Ariel E A E78.2 10/21/2015 Ditto, Ariel E A I25.10 10/23/2015 Ditto, Ariel E A E78.2 10/23/2015 Ditto, Ariel E A I25.10 10/23/2015 Ditto, Ariel E W J43.1 10/26/2015 Ditto, Ariel E A E78.2 10/26/2015 Ditto, Ariel E A I25.10 10/26/2015 Ditto, Ariel E W J43.1 11/10/2015 Ditto, Ariel E A E78.2 11/10/2015 Ditto, Ariel E A I25.10 11/10/2015 Ditto, Ariel E W J43.1 12/26/2015 Ditto, Ariel E A V72.60 LABORATORY EXAMINATION, UNSPECIFIED 12/26/2015 Ditto, Ariel E A V72.60 LABORATORY EXAMINATION, UNSPECIFIED 12/27/2015 JONATHON ESCOBAR W F17.210 NICOTINE DEPENDENCE, CIGARETTES, UNCOMPL 12/27/2015 JONATHON ESCOBAR W I25.10 ATHSCL HEART DISEASE OF [place] CORONARY 12/27/2015 JONATHON ESCOBAR W I48.91 UNSPECIFIED ATRIAL FIBRILLATION 12/27/2015 JONATHON ESCOBAR W J43.9 EMPHYSEMA, UNSPECIFIED 12/27/2015 JONATHON ESCOBAR W R29.898 OTH SYMPTOMS AND SIGNS INVOLVING THE MUS 12/27/2015 JONATHON ESCOBAR A R47.81 SLURRED SPEECH 12/29/2015 Colt, Ariel E A I48.91 UNSPECIFIED ATRIAL FIBRILLATION 12/30/2015 Diignacioo, Ariel E A I48.91 UNSPECIFIED ATRIAL FIBRILLATION 01/12/2016 Diignacioo, Ariel E A I48.91 UNSPECIFIED ATRIAL FIBRILLATION 01/26/2016 Ariel Gregory E A I48.91 UNSPECIFIED ATRIAL FIBRILLATION 03/15/2016 Ariel Gregory V72.60 LABORATORY EXAMINATION, UNSPECIFIED 03/17/2016 Dagoberto Prince MD F17.210 NICOTINE DEPENDENCE, CIGARETTES, UNCOMPL 03/17/2016 Dagoberto Prince MD I48.91 UNSPECIFIED ATRIAL FIBRILLATION 03/17/2016 Dagoberto Prince MD J44.9 CHRONIC OBSTRUCTIVE PULMONARY DISEASE, U 03/17/2016 Dagoberto Prince MD Z86.73 PRSNL HX OF TIA (TIA), AND CEREB INFRC W 03/20/2016 Dagoberto Prince MD I48.0 PAROXYSMAL ATRIAL FIBRILLATION 03/20/2016 Dagoberto Prince MD I48.0 PAROXYSMAL ATRIAL FIBRILLATION 03/20/2016 Dagoberto Prince MD I25.10 ATHSCL HEART DISEASE OF [place] CORONARY 03/20/2016 Dagoberto Prince MD I48.0 PAROXYSMAL ATRIAL FIBRILLATION 03/20/2016 Dagoberto Prince MD Z53.09 PROC/TRTMT NOT CARRIED OUT BECAUSE OF CO 03/20/2016 Dagoberto Prince MD Z79.899 OTHER [facility] (CURRENT) DRUG THERAPY 03/20/2016 Dagoberto Prince MD Z86.73 PRSNL HX OF TIA (TIA), AND CEREB INFRC W 04/02/2016 Ariel Gregory I48.91 UNSPECIFIED ATRIAL FIBRILLATION 04/02/2016 Ariel Gregory I25.10 ATHSCL HEART DISEASE OF [place] CORONARY 04/02/2016 Ariel Gregory Z12.5 ENCOUNTER FOR SCREENING FOR MALIGNANT NE 04/03/2016 Ariel Gregory I25.10 ATHSCL HEART DISEASE OF [place] CORONARY 04/03/2016 Ariel Gregory Z12.5 ENCOUNTER FOR SCREENING FOR MALIGNANT NE 04/04/2016 Ariel Gregory I25.10 ATHSCL HEART DISEASE OF [place] CORONARY 04/04/2016 Ariel Gregory Z12.5 ENCOUNTER FOR SCREENING FOR MALIGNANT NE 04/08/2016 Ariel Gregory I25.10 ATHSCL HEART DISEASE OF [place] CORONARY 04/08/2016 Ariel Gregory Z12.5 ENCOUNTER FOR SCREENING FOR MALIGNANT NE 04/23/2016 Ariel Gregory Z01.89 ENCOUNTER FOR OTHER SPECIFIED SPECIAL EX 04/29/2016 Ariel Gregory I25.10 ATHSCL HEART DISEASE OF [place] CORONARY 04/29/2016 Ariel Gregory Z12.5 ENCOUNTER FOR SCREENING FOR MALIGNANT NE 08/12/2016 WHITE-SLOLINN, RICHY MERCHANDISING STOCK ASSOCIATE A R05 COUGH 08/12/2016 WHITE-SLOUGH, RICHY MERCHANDISING STOCK ASSOCIATE A R05 COUGH 08/13/2016 WHITE-SLOUGH, RICHY MERCHANDISING STOCK ASSOCIATE A R05 COUGH 08/13/2016 WHITE-SLOUGH, RICHY MERCHANDISING STOCK ASSOCIATE A R05 COUGH 08/18/2016 WHITE-SLOUGH, RICHY MERCHANDISING STOCK ASSOCIATE A R05 COUGH 09/13/2016 WHITE-SLOUGH, RICHY MERCHANDISING STOCK ASSOCIATE A R05 COUGH 09/13/2016 WHITE-SLOUGH, RICHY MERCHANDISING STOCK ASSOCIATE A R05 COUGH 09/13/2016 WHITE-SLOUGH, RICHY MERCHANDISING STOCK ASSOCIATE A R05 COUGH 09/13/2016 WHITE-SLOUGH, RICHY MERCHANDISING STOCK ASSOCIATE A R05 COUGH 09/13/2016 WHITE-SLOUGH, RICHY MERCHANDISING STOCK ASSOCIATE A R05 COUGH 09/16/2016 Ariel Gregory E78.5 HYPERLIPIDEMIA, UNSPECIFIED 09/16/2016 Ariel Gregory F17.210 NICOTINE DEPENDENCE, CIGARETTES, UNCOMPL 09/16/2016 Ariel Gregory F41.9 ANXIETY DISORDER, UNSPECIFIED 09/16/2016 Ariel Gregory G47.33 OBSTRUCTIVE SLEEP APNEA (ADULT) (PEDIATR 09/16/2016 Ariel Gregory I48.2 CHRONIC ATRIAL FIBRILLATION 09/16/2016 Ariel Gregory J44.1 CHRONIC OBSTRUCTIVE PULMONARY DISEASE W 09/16/2016 Ariel Gregory J45.909 UNSPECIFIED ASTHMA, UNCOMPLICATED 09/16/2016 Ariel Gregory M54.16 RADICULOPATHY, LUMBAR REGION 09/16/2016 Ariel Gregory Z79.01 [facility] (CURRENT) USE OF ANTICOAGULANT 09/16/2016 Ariel Gregory Z79.82 ENROLLMENT CONSULTANT (CURRENT) USE OF ASPIRIN 09/16/2016 Ariel Gregory Z86.73 PRSNL HX OF TIA (TIA), AND CEREB INFRC W 09/18/2016 RICHY LUNDBERG APRN A R05 COUGH 09/20/2016 RICHY LUNDBERG APRN A R05 COUGH 10/02/2016 RICHY LUNDBERG APRN A R05 COUGH 10/09/2016 CHERELLE-RICHY SANTIAGO APRN A R05 COUGH 10/09/2016 WHITE-PAMELA, RICHY WATTSN A R05 COUGH 10/16/2016 WHITE-PAMELA, RICHY WATTSN A R05 COUGH 03/04/2017 Bryant Hernandez 491.20 OBSTRUCTIVE CHRONIC BRONCHITIS, WITHOUT EXACERBATION 03/04/2017 Bryant Hernandez J44.9 CHRONIC OBSTRUCTIVE PULMONARY DISEASE, UNSPECIFIED 07/24/2017 Chloe Miller W 272.4 07/24/2017 Chloe Miller W 305.1 TOBACCO USE DISORDER 07/24/2017 Juan Milleri W 327.23 07/24/2017 Juan Milleri W 401.0 07/24/2017 Angela Chloe W 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 07/24/2017 Juan Milleri W 427.32 07/24/2017 Juan Milleri W 466.0 07/24/2017 Chloe Miller A 491.21 07/24/2017 Angela Chloe W 536.8 DYSPEPSIA AND OTHER SPECIFIED DISORDERS OF FUNCTION OF STOMACH 07/24/2017 Juan Milleri W 600.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 WITHOUT URINARY OBSTRUCTION AND OTHER LOWER URINARY TRACT SYMPTOMS (LUTS) 07/24/2017 Juan Milleri W 799.02 07/24/2017 Juan Milleri W E78.5 HYPERLIPIDEMIA, UNSPECIFIED 07/24/2017 Juan Milleri W F17.210 NICOTINE DEPENDENCE, CIGARETTES, UNCOMPLICATED 07/24/2017 Angela Chloe W G47.33 OBSTRUCTIVE SLEEP APNEA (ADULT) (PEDIATRIC) 07/24/2017 Angela Chloe W I10 ESSENTIAL (PRIMARY) HYPERTENSION 07/24/2017 Juan Milleri W I25.10 ATHSCL HEART DISEASE OF [place] CORONARY ARTERY W/O ANG PCTRS 07/24/2017 Chloe Miller I48.2 CHRONIC ATRIAL FIBRILLATION 07/24/2017 Chloe Miller J20.9 ACUTE BRONCHITIS, UNSPECIFIED 07/24/2017 Chloe Miller J44.1 07/24/2017 Chloe Miller K30 FUNCTIONAL DYSPEPSIA 07/24/2017 Chloe Miller N40.0 BENIGN PROSTATIC HYPERPLASIA WITHOUT LOWER URINRY TRACT SYMP 07/24/2017 Chloe Miller R09.02 11/24/2017 Eladio Sherwood 455.0 INTERNAL HEMORRHOIDS WITHOUT MENTION OF COMPLICATION 11/24/2017 Eladio Sherwood K64.0 FIRST DEGREE HEMORRHOIDS 12/19/2017 Lalito Dunne 401.0 MALIGNANT ESSENTIAL HYPERTENSION 12/19/2017 Lalito Dunne 427.32 ATRIAL FLUTTER 12/19/2017 Lalito Dunne 491.20 OBSTRUCTIVE CHRONIC BRONCHITIS, WITHOUT EXACERBATION 12/19/2017 Lalito Dunne 786.5 12/19/2017 Lalito Dunne I10 ESSENTIAL (PRIMARY) HYPERTENSION 12/19/2017 Lalito Dunne I48.2 CHRONIC ATRIAL FIBRILLATION 12/19/2017 Lalito Dunne J44.9 CHRONIC OBSTRUCTIVE PULMONARY DISEASE, UNSPECIFIED 12/19/2017 Lalito Dunne R07.89 OTHER CHEST PAIN 12/19/2017 Lalito Dunne V58.61 LONG-TERM (CURRENT) USE OF ANTICOAGULANTS 12/19/2017 Lalito Dunne Z79.01 [facility] (CURRENT) USE OF ANTICOAGULANTS 09/23/2018 Bryant Hernandez 491.20 OBSTRUCTIVE CHRONIC BRONCHITIS, WITHOUT EXACERBATION 09/23/2018 Bryant Hernandez J44.9 CHRONIC OBSTRUCTIVE PULMONARY DISEASE, UNSPECIFIED 10/02/2018 Angle Jones 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 Results Test Result Range PROTIME-INR - 01/24/16 08:30 INR 2.50 PROTHROMBIN TIME 23.9 seconds COMPLETE BLOOD COUNT (CBC) - 03/15/16 08:36 WHITE BLOOD COUNT 5.6 K/mm3 4.8-10.8 RED BLOOD COUNT 4.73 M/mm3 4.20-5.60 HEMOGLOBIN 16.4 g/dl 13.5-18.0 HEMATOCRIT 47.8 % 42.0-52.0 MEAN CORPUSCULAR VOLUME 101 fl 80.0-100.0 MEAN CORPUSCULAR HEMOGLOBIN 35 pg 27.0-31.0 MEAN CORPUSCULAR HGB CONC 34 g/dl 33.0-37.0 PLATELET COUNT 189 K/mm3 130-400 MEAN PLATELET VOLUME 9.2 fl 7.4-10.4 REDCELL DISTRIBUTION WIDTH-CV 12.7 % 11.5-14.5 PROTHROMBIN TIME-PANEL - 03/15/16 08:36 PROTIME WITH INR 23.3 SECONDS 9.7-12.8 INR 2.0 0.8-3.0 COMPREHENSIVE METABOLIC PANEL - 03/15/16 08:36 SODIUM 138 mmol/L 137-145 POTASSIUM 4.6 mmol/L 3.4-5.0 CHLORIDE 105 mmol/L 98-107 CARBON DIOXIDE 24 mmol/L 22-30 ANION GAP 10 mmol/L 7-16 BLOOD UREA NITROGEN 11 mg/dL 9-20 GLUCOSE 99 mg/dL 74-106 CALCIUM 8.2 mg/dL 8.4-10.2 BILIRUBIN,TOTAL 0.7 mg/dL 0.0-1.0 ALKALINE PHOSPHATASE 53 U/L 50-136 ASPARTATE AMINO TRANSFERASE 28 U/L 15-37 ALANINE AMINOTRANSFERASE 25 U/L 21-72 TOTAL PROTEIN 7.0 gm/dL 6.4-8.2 ALBUMIN 3.8 gm/dL 3.5-5.0 CREATININE, serum 0.85 mg/dL 0.66-1.25 ADJUSTED CALCIUM 8.4 mg/dL 8.4-10.2 eGFR 106 eGFR non 88 MAGNESIUM - 03/15/16 08:36 MAGNESIUM 1.9 mg/dL 1.6-2.3 PROTHROMBIN TIME-PANEL - 03/20/16 11:53 PROTIME WITH INR 30.1 SECONDS 9.7-12.8 INR 2.7 0.8-3.0 POTASSIUM - 03/20/16 11:53 POTASSIUM 4.3 mmol/L 3.4-5.0 THYROID STIMULATING HORMONE - 03/20/16 11:53 THYROID STIMULATING HORMONE 1.460 uIU/mL 0.465-4.680 PROTIME-INR - 03/28/16 15:21 INR 2.80 PROTHROMBIN TIME 28.3 seconds PSA-TOTAL - 04/02/16 10:20 PSA-TOTAL 0.72 ng/mL 0-4 PROTIME-INR - 04/25/16 12:20 INR 3.50 PROTHROMBIN TIME 36.3 seconds PROTIME-INR - 09/25/16 11:36 INR 6.60 PROTHROMBIN TIME 83.1 seconds Protime - 11/04/16 13:17 INR 1.5 1.0-4.0 Protime 17.3 Sec 9.9-12.8 PROTIME-INR - 11/14/16 10:47 INR 2.50 PROTHROMBIN TIME 25.4 seconds Pulmonary Function Hemoglobin - 11/26/16 12:28 Hgb 15.8 g/dL 14.0-17.0 Protime - 12/03/16 11:36 INR 3.7 1.0-4.0 Protime 46.8 Sec 9.9-12.8 Protime - 12/17/16 10:24 INR 1.9 1.0-4.0 Protime 22.8 Sec 9.9-12.8 Protime - 01/21/17 11:07 INR 4.2 1.0-4.0 Protime 52.8 Sec 9.9-12.8 Thyroid Stimulating Hormone - 02/05/17 11:51 TSH 2.29 mIU/mL 0.32-5.00 Protime - 02/16/17 18:10 INR 1.7 1.0-4.0 Protime 20.5 Sec 9.9-12.8 Protime - 03/03/17 10:53 INR 3.1 1.0-4.0 Protime 38.5 Sec 9.9-12.8 Protime - 03/24/17 09:22 INR 3.0 1.0-4.0 Protime 36.9 Sec 9.9-12.8 Protime - 04/23/17 10:19 INR 1.7 1.0-4.0 Protime 20.4 Sec 9.9-12.8 Lipid Panel - 05/19/17 09:37 C/HDL 5.0 3.7-6.7 Cholesterol 171 mg/dL 100-240 HDL 34 mg/dL 30-85 LDL-Calculated 114 mg/dL 0-100 Trig 113 mg/dL 35-160 VLDL 23 mg/dL 0-42 Protime - 06/18/17 15:26 INR 2.7 1.0-4.0 Protime 32.0 Sec 9.9-12.8 Protime - 07/22/17 16:30 INR 5.8 1.0-4.0 Protime 67.7 Sec 9.9-12.8 Lactic Acid - 07/22/17 16:30 Lactic Acid 10.3 mg/dL 4.5-19.8 Blood Culture - 07/22/17 16:30 PRELIM CULTURE RESULTS Blood Culture Negative, No Growth Day 1 FINAL CULTURE RESULTS Blood Culture Negative, No Growth Day 5 MEDIA PLATED Setup at 18:10 on 07/22/[id number] Culture Media Position C48 CULTURE SOURCE blood Blood Culture - 07/22/17 16:30 PRELIM CULTURE RESULTS Blood Culture Negative, No Growth Day 1 FINAL CULTURE RESULTS Blood Culture Negative, No Growth Day 5 MEDIA PLATED Setup at 18:10 on 07/22/[id number] Culture Media Position B33 CULTURE SOURCE blood Urinalysis - 07/22/17 18:21 Icotest N/A Negative Urine Volume Urine Volume Sufficient (10mL) Urine-Appearance Clear Clear Urine-Bacteria Negative Urine-Bilirubin Negative Negative Urine-Blood 1+ Negative Urine-Color Yellow Colorless-Lt. Yellow Urine-Epithelial Cells 0-5/HPF Urine-Glucose Negative Negative Urine-Ketones Negative Negative Urine-Leukocytes Negative Negative Urine-Nitrite Negative Negative Urine-Other Urine Saved if Culture Needed (48hrs from time of collection) Urine-pH 5.5 5-8.5 Urine-Protein Negative Negative Urine-RBC 2-5/HPF Urine-Specific [place] 1.015 1.000-1.030 Urine-WBC 0-2/HPF Urobilinogen 0.2 0.2-1.0 Comprehensive Metabolic Panel - 07/23/17 05:30 Albumin 3.5 g/dL 3.6-5.1 ALP 49 U/L 35-130 ALT 14 U/L 6-45 Anion Gap 13 6-14 AST 17 U/L 2-40 BUN 11 mg/dL 5-25 Calcium 8.5 mg/dL 8.3-10.4 Chloride 105 mmol/L 95-114 CO2 22 mEq/L 22-33 Creat 0.96 mg/dL 0.50-1.50 eGFR 76 mL/min/1.73m2 >59 Globulin 2.9 g/dL 2.3-3.5 Glucose 176 mg/dL 70-110 Osmo 284 280-295 Potassium 4.1 mmol/L 3.5-5.3 Sodium 136 mmol/L 134-148 TBil 0.4 mg/dL 0.2-1.2 TP 6.4 g/dL 6.0-8.3 Protime - 07/24/17 05:37 INR 3.7 1.0-4.0 Protime 43.1 Sec 9.9-12.8 Protime - 07/29/17 09:06 INR 1.6 1.0-4.0 Protime 18.8 Sec 9.9-12.8 Protime - 08/13/17 12:35 INR 4.1 1.0-4.0 Protime 47.8 Sec 9.9-12.8 Protime - 08/29/17 13:16 INR 3.2 1.0-4.0 Protime 37.5 Sec 9.9-12.8 Triglycerides - 09/15/17 10:16 Trig 163 mg/dL 35-160 Protime - 10/15/17 11:45 INR 3.1 1.0-4.0 Protime 35.7 Sec 9.9-12.8 Protime - 11/14/17 11:11 INR 3.8 1.0-4.0 Protime 47.1 Sec 9.9-12.8 Protime - 11/24/17 07:25 INR 1.2 1.0-4.0 Protime 13.5 Sec 9.9-12.8 Comprehensive Metabolic Panel - 12/13/17 08:41 Albumin 3.8 g/dL 3.6-5.1 ALP 47 U/L 35-130 ALT 11 U/L 6-45 Anion Gap 13 6-14 AST 16 U/L 2-40 BUN 11 mg/dL 5-25 Calcium 9.0 mg/dL 8.3-10.4 Chloride 106 mmol/L 95-114 CO2 26 mEq/L 22-33 Creat 0.98 mg/dL 0.50-1.50 eGFR 74 mL/min/1.73m2 >59 Globulin 2.6 g/dL 2.3-3.5 Glucose 105 mg/dL 70-110 Osmo 291 280-295 Potassium 4.2 mmol/L 3.5-5.3 Sodium 141 mmol/L 134-148 TBil 0.5 mg/dL 0.2-1.2 TP 6.4 g/dL 6.0-8.3 Cardiac Panel - 12/19/17 11:27 CK 51 U/L 26-174 CK-MB 1.3 ng/ml 0.0-9.2 Myoglobin 43.2 ng/ml 1.6-154.9 Troponin <0.020 ng/mL 0.0-0.4 Protime - 01/20/18 12:25 INR 2.8 1.0-4.0 Protime 32.7 Sec 9.9-12.8 Protime - 02/17/18 15:23 INR 3.5 1.0-4.0 Protime 40.6 Sec 9.9-12.8 Thyroid Stimulating Hormone - 03/19/18 07:51 TSH 0.52 mIU/mL 0.32-5.00 Protime - 04/16/18 10:17 INR 2.9 1.0-4.0 Protime 33.4 Sec 9.9-12.8 Protime - 05/19/18 11:18 INR 3.8 1.0-4.0 Protime 44.1 Sec 9.9-12.8 Protime - 05/28/18 11:24 INR 2.1 1.0-4.0 Protime 24.5 Sec 9.9-12.8 Lipid Panel - 06/04/18 09:19 C/HDL 3.8 3.7-6.7 Cholesterol 153 mg/dL 100-240 HDL 40 mg/dL 30-85 LDL-Calculated 90 mg/dL 0-100 Trig 115 mg/dL 35-160 VLDL 23 mg/dL 0-42 Protime - 07/02/18 11:06 INR 3.0 1.0-4.0 Protime 35.7 Sec 9.9-12.8 Protime - 07/16/18 10:00 INR 2.2 1.0-4.0 Protime 26.2 Sec 9.9-12.8 Protime - 08/17/18 13:28 INR 2.3 1.0-4.0 Protime 27.2 Sec 9.9-12.8 CBC with Auto Diff - 09/14/18 08:58 Baso% 0.10 % 0.00-2.50 Eos 0.2 K/uL 0.0-0.7 Eos% 2.4 % 0.0-7.0 Hct 47.3 % 42.0-52.0 Hgb 15.8 g/dL 14.0-17.0 Lym 1.97 K/uL 0.60-3.40 Lym% 19.9 % 10.0-50.0 MCH 33.1 pg 27.0-31.2 MCHC 33.4 g/dL 32.0-36.0 MCV 99.2 fL 80.0-97.0 [place]% 11.0 % 0.0-12.0 MPV 9.0 fL 7.4-10.0 [place]% 66.6 % 37.0-80.0 Plt 222 K/uL 150-400 RBC 4.77 M/uL 4.20-5.40 RDW 13.0 % 11.6-14.8 WBC 9.90 K/uL 5.00-10.00 [place] 6.59 K/uL 2.00-6.90 [place] 1.1 K/uL 0.0-0.9 Baso 0.0 K/uL 0.0-0.2 Protime - 10/12/18 10:55 INR 2.9 1.0-4.0 Protime 34.6 Sec 9.9-12.8 EKG - 11/09/18 10:15 EKG Complete Protime - 11/11/18 10:45 INR 1.9 1.0-4.0 Protime 22.1 Sec 9.9-12.8 Encounters ACCT No. Visit Date/Time Discharge Status Pt. Type Provider Facility Loc./Unit Complaint [id number] 11/11/2018 10:42:00 11/11/2018 23:59:00 DIS Outpatient Chloe Miller [id number] 11/09/2018 09:41:00 11/09/2018 23:59:00 DIS Outpatient Bryant Hernandez [id number] 10/12/2018 10:44:00 10/12/2018 23:59:00 DIS Outpatient Chloe Miller [id number] 10/02/2018 09:30:00 10/02/2018 23:59:00 DIS Outpatient Angle Jones [id number] 09/23/2018 09:06:00 09/23/2018 23:59:00 DIS Outpatient Bryant Hernandez [id number] 09/14/2018 08:50:00 09/14/2018 23:59:00 DIS Outpatient Chloe Miller [id number] 08/17/2018 13:19:00 08/17/2018 23:59:00 DIS Outpatient Chloe Miller [id number] 08/07/2018 10:53:00 08/07/2018 23:59:00 DIS Outpatient Mike Petty [id number] 07/16/2018 09:56:00 07/16/2018 23:59:00 DIS Outpatient Chloe Miller [id number] 07/02/2018 10:57:00 07/02/2018 23:59:00 DIS Outpatient Angela Chloe [id number] 06/17/2018 09:52:00 06/17/2018 23:59:00 DIS Outpatient Angela Chloe [id number] 06/04/2018 09:03:00 06/04/2018 23:59:00 DIS Outpatient Angela Chloe [id number] 05/28/2018 11:22:00 05/28/2018 23:59:00 DIS Outpatient Angela Chloe [id number] 05/19/2018 11:14:00 05/19/2018 23:59:00 DIS Outpatient Angela Chloe [id number] 04/16/2018 10:15:00 04/16/2018 23:59:00 DIS Outpatient Alis Beltre [id number] 03/19/2018 07:48:00 03/19/2018 23:59:00 DIS Outpatient Angela Chloe [id number] 03/18/2018 10:32:00 03/18/2018 23:59:00 DIS Outpatient Angela Chloe [id number] 02/17/2018 15:20:00 02/17/2018 23:59:00 DIS Outpatient Miller, Chloe [id number] 01/20/2018 12:20:00 01/20/2018 23:59:00 DIS Outpatient Miller, Chloe [id number] 12/19/2017 11:08:00 12/19/2017 13:15:00 DIS Outpatient Lalito Dunne [id number] 12/13/2017 08:36:00 12/13/2017 23:59:00 DIS Outpatient Miller, Chloe [id number] 12/13/2017 08:23:00 12/13/2017 23:59:00 DIS Outpatient Miller, Chloe [id number] 12/12/2017 14:06:00 12/12/2017 23:59:00 DIS Outpatient Angela, Chloe [id number] 11/24/2017 06:47:00 11/24/2017 09:35:00 DIS Outpatient Eladio Sherwood [id number] 11/14/2017 10:57:00 11/14/2017 23:59:00 DIS Outpatient Eladio Sherwood [id number] 10/15/2017 11:41:00 10/15/2017 23:59:00 DIS Outpatient Miller, Chloe [id number] 09/15/2017 10:07:00 09/15/2017 23:59:00 DIS Outpatient Chloe Miller [id number] 08/29/2017 13:13:00 08/29/2017 23:59:00 DIS Outpatient Angela Chloe [id number] 08/13/2017 12:32:00 08/13/2017 23:59:00 DIS Outpatient Juan Milleri [id number] 07/29/2017 08:56:00 07/29/2017 23:59:00 DIS Outpatient Miller, Chloe [id number] 07/22/2017 15:36:00 07/24/2017 09:00:00 DIS Outpatient Miller, Chloe [id number] 06/18/2017 15:14:00 06/18/2017 23:59:00 DIS Outpatient Angela, Chloe [id number] 05/19/2017 09:26:00 05/19/2017 23:59:00 DIS Outpatient Miller, Chloe [id number] 04/23/2017 10:12:00 04/23/2017 23:59:00 DIS Outpatient Angela, Chloe [id number] 03/24/2017 09:18:00 03/24/2017 23:59:00 DIS Outpatient Chloe Miller [id number] 11/27/2016 10:19:00 03/04/2017 10:41:00 DIS Outpatient Bryant Hernandez [id number] 03/03/2017 10:49:00 03/03/2017 23:59:00 DIS Outpatient Chloe Miller [id number] 02/16/2017 18:02:00 02/16/2017 23:59:00 DIS Outpatient Chloe Miller [id number] 02/05/2017 11:37:00 02/05/2017 23:59:00 DIS Outpatient Chloe Miller [id number] 01/21/2017 10:58:00 01/21/2017 23:59:00 DIS Outpatient Chloe Miller [id number] 12/17/2016 10:17:00 12/17/2016 23:59:00 DIS Outpatient Chloe Miller [id number] 12/03/2016 11:28:00 12/03/2016 23:59:00 DIS Outpatient Chloe Miller [id number] 11/26/2016 12:25:00 11/26/2016 23:59:00 DIS Outpatient Chloe Miller [id number] 11/04/2016 13:11:00 11/04/2016 23:59:00 DIS Outpatient Chloe Miller [id number] 07/22/2017 16:16:53 Document Registration [id number] 04/02/2016 14:54:00 04/02/2016 23:59:59 CLS Outpatient Ariel Gregory [facility] [id number] 03/20/2016 11:36:00 03/20/2016 14:47:00 DIS Outpatient Dagoberto Prince MD [facility] COL.RAD CARDIOVERSION [id number] 03/15/2016 08:13:00 03/17/2016 11:54:00 DIS Inpatient Dagoberto Prince MD [facility] MEDICAL DIRECT ADMIT [id number] 12/26/2015 14:03:00 12/27/2015 14:12:00 DIS Inpatient JONATHON ESCOBAR [facility] MEDICAL ED ADMIT [id number] 03/23/2015 15:08:00 03/23/2015 23:59:59 CLS Outpatient Ditto, Ariel E [facility] [id number] 01/26/2015 12:07:00 01/26/2015 23:59:59 CLS Outpatient Ditto, Ariel E [facility] [id number] 03/17/2014 16:27:00 03/17/2014 23:59:59 CLS Outpatient Ditto, Ariel E [facility] [id number] 11/14/2016 10:37:16 11/14/2016 23:59:59 CLS Outpatient [facility] [id number] 10/23/2016 10:53:46 10/23/2016 23:59:59 CLS Outpatient [facility] [id number] 10/16/2016 10:12:51 10/16/2016 23:59:59 CLS Outpatient [facility] [id number] 10/02/2016 11:21:25 10/02/2016 23:59:59 CLS Outpatient [facility] [id number] 09/25/2016 11:31:47 09/25/2016 23:59:59 CLS Outpatient [facility] [id number] 09/25/2016 10:54:02 09/25/2016 23:59:59 CLS Outpatient [facility] [id number] 09/11/2016 11:09:44 09/11/2016 23:59:59 CLS Outpatient [facility] [id number] 08/28/2016 09:12:29 08/28/2016 23:59:59 CLS Outpatient [facility] [id number] 08/12/2016 09:07:41 08/12/2016 23:59:59 CLS Outpatient [facility] [id number] 07/10/2016 09:37:00 07/10/2016 23:59:59 CLS Outpatient [facility] [id number] 06/12/2016 11:22:14 06/12/2016 23:59:59 CLS Outpatient [facility] [id number] 05/13/2016 09:12:08 05/13/2016 23:59:59 CLS Outpatient [facility] [id number] 04/25/2016 12:27:06 04/25/2016 23:59:59 CLS Outpatient DAGOBERTO PRINCE [facility] [id number] 04/25/2016 12:08:03 04/25/2016 23:59:[address] [facility] [id number] 04/12/2016 09:33:58 04/12/2016 23:59:[address] [facility] [id number] 03/28/2016 15:16:16 03/28/2016 23:59:[address] [facility] [id number] 03/28/2016 14:57:35 03/28/2016 23:59:[address] [facility] [id number] 03/13/2016 10:34:58 03/13/2016 23:59:[address] [facility] [id number] 02/28/2016 11:39:51 02/28/2016 23:59:[address] [facility] [id number] 02/23/2016 07:55:43 02/23/2016 23:59:[address] [facility] [id number] 02/21/2016 10:13:49 02/21/2016 23:59:[address] [facility] [id number] 02/14/2016 11:12:08 02/14/2016 23:59:[address] [facility] [id number] 02/07/2016 10:32:52 02/07/2016 23:59:59 CLS Outpatient [facility]AREL [facility] [id number] 02/07/2016 09:22:24 02/07/2016 23:59:[address] [facility] [id number] 02/02/2016 09:09:28 02/02/2016 23:59:[address] [facility] [id number] 01/24/2016 08:27:11 01/24/2016 23:59:[address] [facility] [id number] 01/17/2016 10:17:50 01/17/2016 23:59:[address] [facility] [id number] 01/10/2016 11:03:33 01/10/2016 23:59:[address] [facility] [id number] 01/03/2016 09:04:44 01/03/2016 23:59:[address] [facility] [id number] 09/25/2016 15:45:35 Document Registration [id number] 02/28/2016 11:53:08 Document Registration [id number] 09/13/2016 11:59:00 09/16/2016 09:13:00 DIS Inpatient [facility] MED/SURG ACUTE [id number] 09/13/2016 10:59:00 09/13/2016 23:59:59 CLS Outpatient [facility] RAD XRAY/LAB [id number] 08/12/2016 14:26:00 08/12/2016 23:59:59 CLS Outpatient [facility] RAD XRAY/LAB [id number] 04/02/2016 10:09:00 04/02/2016 23:59:59 CLS Outpatient [facility] LAB LAB [id number] 12/29/2015 10:24:00 12/29/2015 23:59:59 CLS Outpatient [facility] LAB LAB [id number] 10/20/2015 10:16:00 10/20/2015 23:59:59 CLS Outpatient [facility] LAB [id number] 03/18/2014 09:25:00 03/18/2014 23:59:59 CLS Outpatient [id number] 03/17/2014 11:16:00 03/17/2014 23:59:59 CLS Outpatient
[2018-12-03] MEDS ORDERED: NS IV 1000 ML 1,000 ML ONE (11:11)
[2018-12-03] MEDS ORDERED: LIDOCAINE 1% INJ 20 ML 20 ML VIAL ONE (11:11)
[2018-12-03] MEDS ORDERED: HEParin (CATH LAB) 1,000 ML IV ONE (11:11)
[2018-12-03] MEDS ORDERED: BACITRACIN INJECTION 50,000 UNIT, SODIUM CHLORIDE 0.9% IRRIGATIO 500 ML IR ONE ×2 (11:30)
[2018-12-03] MEDS ORDERED: NS IV 1000 ML 1,000 ML IV SCH ×4 (11:30→20:15)
[2018-12-03 11:37] LABS: MEAN PLATELET VOLUME 9.2 FL (7.4-10.4); RED CELL DISTRIBUTION WIDTH 12.9 % (10.0-14.5); WHITE BLOOD COUNT 8.8 10^3/uL (4.3-11.0)
[2018-12-03] MEDS ORDERED: ALPR0.25 PO (11:49)
[2018-12-03 11:50] LABS: INR 1.3 (0.8-1.4); PROTHROMBIN TIME PATIENT 16.4 SEC (12.2-14.7)
[2018-12-03 11:53] LABS: ALANINE AMINOTRANSFERASE 15 U/L (0-55); ALKALINE PHOSPHATASE 53 U/L (40-136); BILIRUBIN,TOTAL 1.3 MG/DL (0.1-1.0); BUN/CREATININE RATIO 9; CALCIUM 9.4 MG/DL (8.5-10.1); CARBON DIOXIDE 27 MMOL/L (21-32); CHLORIDE 103 MMOL/L (98-107); CREATININE SERUM 1.03 MG/DL (0.60-1.30); GFR ESTIMATED > 60; GLUCOSE 108 MG/DL (70-105); POTASSIUM 4.4 MMOL/L (3.6-5.0); SODIUM 139 MMOL/L (135-145); TOTAL PROTEIN 7.5 GM/DL (6.4-8.2)
[2018-12-03] MEDS ORDERED: proPOfol 200 MG/20 ML (DIPRIVAN) VIAL IV ONE (12:35)
[2018-12-03] MEDS ORDERED: MIDAZOLAM 2 MG/2 ML (VERSED) VIAL ONE (12:35)
[2018-12-03] MEDS ORDERED: LACTATED RINGERS 1,000 ML IV ONE (12:41)
[2018-12-03] MEDS ORDERED: ceFAZolin INJECTION 2,000 MG ONE (13:43)
[2018-12-03] MEDS ORDERED: NS (IVPB) 100 ML ONE (13:43)
[2018-12-03] MEDS ORDERED: NEO/POLY/BAC (NEOSPORIN) OINT 15 GM TUBE ONE (14:40)
--- NOTE | 2018-12-03 14:51 | Cardiac Procedure Note-CS/ASA ---
Pre-Procedure Note Pre-Op Procedure Note H&P Reviewed The H&P was reviewed, patient examined and no changes noted. Date H&P Reviewed: December 03, 2018 Time H&P Reviewed: 13:00 Conscious Sedation Pre-Proced Time 13:00 ASA Score 3 For ASA 3 and 4: Consider anesthesia and medical clearance. Also, for patients with a history of failed moderate sedation consider anesthesia. Airway Lungs Heart ASA score ASA 1: a normal healthy patient ASA 2: a patient with a mild systemic disease (mid diabetes, controlled hypertension, obesity ASA 3: a patient with a severe systemic disease that limits activity (angina , COPD, prior Myocardial infarction) ASA 4: a patient with an incapacitating disease that is a constant threat to life (CHF, renal failure) ASA 5: a moribund patient not expected to survive 24 hrs. (ruptured aneurysm) ASA 6: a declared brain- patient whose organs are being harvested. For emergent operations, add the letter E after the classification Mallampati Classification Grade 1 Sedation Plan Analgesia, Amnesia, Plan communicated to team members, Discussed options with patient/fam, Discussed risks with patient/fam The patient is an appropriate candidate to undergo the planned procedure, sedation, and anesthesia. The patient immediately re-assessed prior to indication. Abraham GARCIA MD December 03, 2018 14:51
--- NOTE | 2018-12-03 14:52 | Permanent Pacemaker Implant ---
Dual Chamber Pacemaker Implant PROCEDURE PHYSICIAN: Torrey Woodard MD DUAL CHAMBER PACEMAKER IMPLANTATION: DATE OF PROCEDURE: 12/03/18 ATTENDING PHYSICIAN: Dr. Torrey Woodard INDICATION: Severe symptomatic sinus node dysfunction, PAF. PREOPERATIVE DIAGNOSIS: Severe symptomatic sinus node dysfunction, PAF. POSTOPERATIVE DIAGNOSIS: 1. Successful Dual Chamber Permanent Pacemaker Implantation. 2. PAF. 3. Typical atrial flutter. HISTORY: This is a 78-year-old gentleman with oxygen dependent COPD who has history of paroxysmal atrial fibrillation on oral anticoagulation. He has severe symptomatic sinus node dysfunction. Dual-chamber permanent pacemaker was recommended. PROCEDURE PERFORMED: 1. Dual-chamber permanent pacemaker implantation. 2. Fluoroscopy. 3. Central venous access. ANESTHESIA: Local anesthesia, conscious sedation. COMPLICATIONS: None. ESTIMATED BLOOD LOSS:20 mL. SPECIMENS: None. ORAL ANTICOAGULATION: None. FLUOROSCOPY TIME: 4.14 minutes. FLUOROSCOPY DOSE: 31 mgy. CONTRAST DOSE: None. PROCEDURE DETAILS: The patient is a 78 male and after all of the patients questions were answered, the patient was brought to the EP Lab. He was found to be in atrial fibrillation. The patient's left chest was prepped and draped in sterile fashion. A 2 inch horizontal incision was made 1 cm below the clavicle and dissection carried down to the pectoralis fascia. Using the modified Seldinger technique and under fluoroscopy guidance, the anterior aspect of the left axillary vein was accessed 2 times. The J wires were secured to the drapes with a mosquito clamp. A 6-Botswanan sheath was introduced over one of the J-wires. The RV lead was then inserted. The RV lead was directed across the tricuspid valve to the apical septal portion of the right ventricle. The position was checked in GUYANESE and SALES views. The screw was deployed and the lead connected to the programmer developer. Close sensing and pacing thresholds were obtained. Diaphragmatic pacing was ruled out. The lead was secured with 2-0 silk ties to the underlying muscle and fascia. Next, a 6-Botswanan sheath was introduced through the remaining J-wire. An atrial lead was then introduced and guided to the level of the right appendage. The screw was deployed and the lead was connected to the interrogator. Good sensing thresholds were obtained. However, due to AF pacing thresholds were not obtained. Diaphragmatic pacing was ruled out. The leads were secured with 2-0 silk ties to the underlying muscle and fascia. The leads were connected to the device in a hermetic fashion. The device and leads were placed in the pocket. Aggressive irrigation with saline solution was done. The device was secured to the underlying muscle and fascia with a 2-0 silk tie. interrogation of the device revealed good integrity of all the leads and good connections. The patient converted to sinus rhythm spontaneously and atrial lead sensing and pacing threshold was obtained, which were excellent. The patient then converted to typical atrial flutter for a few minutes and then degenerated to AF and then converted to sinus rhythm. The wound was then closed using 2 layers. The first layer was interrupted 2-0 absorbable Vicryl suture. The last layer was a single subcuticular layer with 4- 0 Vicryl suture. Half inch Steri-Strips and a small dressing were then applied to the wound. The patient tolerated the procedure well and was returned to the recovery room in stable condition with stable vital signs. DEVICE INFORMATION: AarkironiNexercise Eluna 8 DR-T. reference number [id number]. Serial number [id number]. PID 50. RA LEAD: Solia S 53, reference number [id number]. Serial number [id number]. RV LEAD: Solia S 60, reference number [id number], serial number [id number]. PER-OPERATIVE DEVICE INTERROGATION: Right atrial sensing in atrial fibrillation/atrial flutter 1.03.0 mV. Impedance 548 ohms. Pacing threshold not done. RV R-wave 7.8 mV, impedance 788 ohms, pacing threshold 0.5 V at 0.5 ms. IMMEDIATE POSTOPERATIVE DEVICE INTERROGATION: Right atrial sensing 2.5 mV. Flutter wave sensing 4.6 mV. Impedance 448 ohms. Threshold 1.0 V at 0.4 ms. RV R-wave 7.7 mV. Impedance 487 ohms. Stable pacing threshold. PLAN: The patient transferred to the ICU. We will continue with two more doses of IV antibiotics. We will check a chest x-ray and interrogate the device in the morning. The patient will continue on oral antibiotics for 5 days. Torrey Woodard MD, [facility], CCDS Cardiac Electrophysiology Abraham WOODARD MD December 03, 2018 14:52
[2018-12-03] MEDS ORDERED: PATIENT MAY USE OWN MEDS, ALL PO SCH ×2 (15:00→15:45)
[2018-12-03] MEDS ORDERED: ONDANSETRON 4 MG/2 ML (SDV) Z0FRAN IVP PRN (15:15)
[2018-12-03] MEDS ORDERED: morphine INJ 10 MG/ML 1ML (SYR OR VIAL) IVP ONE (15:15)
--- NOTE | 2018-12-03 16:13 | Diagnostic Imaging Report ---
INDICATION: post ppm COMPARISON: 09/04/2018. FINDINGS: Single frontal view of the chest demonstrates normal heart size and pulmonary vascularity. New left-sided dual-lead pacemaker is noted. The lungs are well aerated and clear. No large pleural effusion or pneumothorax is seen. The visualized osseous structures show no acute abnormalities. IMPRESSION: 1. No pneumothorax, status post left-sided dual-lead pacemaker placement. Dictated by: Dictated on workstation # [id number]
--- NOTE | 2018-12-03 16:53 | Anesthesia-General Post-Op ---
MAC Patient Condition Mental Status/LOC: Same as Preop Cardiovascular: Satisfactory Nausea/Vomiting: Absent Respiratory: Satisfactory Pain: Controlled Complications: Absent Post Op Complications Complications None Follow Up Care/Instructions Patient Instructions None needed. Anesthesiology Discharge Order Discharge Order Patient is doing well, no complaints, stable vital signs, no apparent adverse anesthesia problems. No complications reported per nursing. ABIODUN CHENEY CRNA December 03, 2018 16:53
--- NOTE | 2018-12-03 20:00 | NUR ---
PT B/P 84/60. HR 82. PACEMAKER SITE DRY AND INTACT. NO SIGNS OF BLEEDING. DR. GARCIA CALLED AND INFORMED OF PT CHANGE IN B/P. ORDER TO GIVEN 1LITER BOLUS OF NS.
[2018-12-03] MEDS ORDERED: CATHETER FLUSH 10 ML SYR IV PRN (20:30)
[2018-12-03] MEDS ORDERED: RT-ALBUTEROL SULF 2.5 MG/3 ML PRE-MIX VIAL INH PRN (20:45)
[2018-12-03] MEDS ORDERED: NITROGLYCERIN 0.4 MG SL TABS BTL 25'S SL PRN (20:45)
[2018-12-03] MEDS ORDERED: RT-ALBUTEROL SULF 2.5 MG/3 ML PRE-MIX VIAL IH PRN (20:45)
[2018-12-03] MEDS ORDERED: ALPRAZolam 0.25 MG (XANAX) TAB PO PRN (20:45)
[2018-12-03] MEDS ORDERED: ATORVASTATIN 40 MG (LIPITOR) TABLET PO SCH (21:00)
[2018-12-03] MEDS ORDERED: NON-FORMULARY MEDICATION 1 EA EA (Terazosin HCl 5 MG) PO SCH (21:00)
[2018-12-03] MEDS ORDERED: OMEPRAZOLE 20 MG (PriLOSEC) CAP NON-FORMULARY PO SCH (21:00)
[2018-12-03] MEDS ORDERED: NON-FORMULARY MEDICATION 1 EA EA (Guaifenesin (Mucinex) 1,200 MG) PO SCH (21:00)
[2018-12-03] MEDS ORDERED: NON-FORMULARY MEDICATION 1 EA EA (Montelukast Sodium (Singulair) 10 MG) PO SCH (21:00)
[2018-12-03] MEDS ORDERED: NON-FORMULARY MEDICATION 1 EA EA (Fluticasone/Salmeterol (Advair 500-50 Diskus) 1 PUFF) IH SCH (21:00)
[2018-12-03] MEDS ORDERED: RT-ADVAIR HFA 115/21 MCG PER PUFF IH ONE (21:14)
[2018-12-03] MEDS ORDERED: ceFAZolin INJECTION 1,000 MG in WATER (STERILE) FOR INJECTION 10 ML IV SCH (22:00)
[2018-12-03] MEDS ORDERED: MONTELUKAST 10 MG (SINGULAIR) TAB ONE (22:41)
[2018-12-03] MEDS ORDERED: guaiFENesin (MUCINEX) 600 MG TAB PO ONE (22:41)
[2018-12-03] MEDS: FLUTICASONE NASAL SPRAY (FLONASE) 16 GM BTL NS SCH (22:48)
[2018-12-03] MEDS: ceFAZolin INJECTION 1,000 MG in WATER (STERILE) FOR INJECTION 10 ML IV SCH (22:48)
[2018-12-03] MEDS: guaiFENesin (MUCINEX) 600 MG TAB PO SCH (22:49)
[2018-12-04 00:53] VITALS: BP 95/63
[2018-12-04 03:24] VITALS: BP 90/60
[2018-12-04] MEDS: ceFAZolin INJECTION 1,000 MG in WATER (STERILE) FOR INJECTION 10 ML IV SCH (05:11)
[2018-12-04 06:28] LABS: HEMOGLOBIN 13.1 G/DL (13.3-17.7); MEAN PLATELET VOLUME 9.3 FL (7.4-10.4); RED CELL DISTRIBUTION WIDTH 12.6 % (10.0-14.5); WHITE BLOOD COUNT 8.7 10^3/uL (4.3-11.0)
[2018-12-04 06:52] LABS: ALANINE AMINOTRANSFERASE 13 U/L (0-55); ALBUMIN 3.7 GM/DL (3.2-4.5); ALKALINE PHOSPHATASE 51 U/L (40-136); BILIRUBIN,TOTAL 1.2 MG/DL (0.1-1.0); BUN/CREATININE RATIO 12; CALCIUM 8.8 MG/DL (8.5-10.1); CARBON DIOXIDE 23 MMOL/L (21-32); CHLORIDE 101 MMOL/L (98-107); CREATININE SERUM 1.01 MG/DL (0.60-1.30); GFR ESTIMATED > 60; GLUCOSE 115 MG/DL (70-105); POTASSIUM 4.3 MMOL/L (3.6-5.0); SODIUM 133 MMOL/L (135-145); TOTAL PROTEIN 6.8 GM/DL (6.4-8.2)
[2018-12-04 08:00] VITALS: BP 99/72
[2018-12-04] MEDS ORDERED: SYMBICORT 160/4.5 MCG INHALER 6 GM (NON-FORMULARY) IH SCH (08:00)
[2018-12-04] MEDS ORDERED: UMECLIDINIUM BROMIDE (INCRUSE ELLIPTA) 7'S IH SCH (08:00)
[2018-12-04] MEDS: guaiFENesin (MUCINEX) 600 MG TAB PO SCH (08:55)
[2018-12-04] MEDS: FLUTICASONE NASAL SPRAY (FLONASE) 16 GM BTL NS SCH (08:56)
[2018-12-04] MEDS ORDERED: NON-FORMULARY MEDICATION 1 EA EA (Citalopram Hydrobromide (Celexa) 40 MG) PO SCH (09:00)
[2018-12-04] MEDS ORDERED: PANTOPRAZOLE 40 MG (PROTONIX) TAB PO SCH (09:00)
[2018-12-04] MEDS ORDERED: TIOTROPIUM BROMIDE (SPIRIVA) 5'S INHALER IH SCH (09:00)
[2018-12-04] MEDS ORDERED: LORATADINE (CLARITIN) 10 MG TAB PO SCH (09:00)
[2018-12-04] MEDS ORDERED: NICOTINE 21 MG (NICODERM) PATCH TD SCH (09:00)
[2018-12-04] MEDS ORDERED: NON-FORMULARY MEDICATION 1 EA EA (Aspirin (Aspir 81) 81 MG) PO SCH (09:00)
[2018-12-04] MEDS ORDERED: NON-FORMULARY MEDICATION 1 EA EA (Fexofenadine HCl (Allegra Allergy) 180 MG) PO SCH (09:00)
[2018-12-04] MEDS ORDERED: ASPIRIN 81 MG CHEW (CHILDREN'S ASA) PO SCH (09:00)
--- NOTE | 2018-12-04 09:18 | Cardiology Discharge Summary ---
Diagnosis/Chief Complaint Date of Admission 12/03/2018 Date of Discharge 12/04/2018 Admission Diagnosis Symptomatic severe sinus node dysfunction. Final/Discharge Diagnosis Dual-chamber permanent pacemaker implantation Chief Complaint/HPI Chief Complaint/HPI This is a 78-year-old gentleman with oxygen dependent COPD, CAD/PCI. Presents with severe symptomatic sinus node dysfunction. Dual-chamber permanent pacemaker is recommended. Discharge Summary Procedures Dual-chamber permanent pacemaker implantation Discharge Physical Examination Left upper chest was normal with no signs of infection, erythema, hematoma or swelling. Hospital Course Was the Problem List Reviewed?: Yes Unremarkable. Pending Labs Laboratory Tests 12/04/18 06:15: White Blood Count 8.7, Red Blood Count 4.07, Hemoglobin 13.1, Hematocrit 40, Mean Corpuscular Volume 98, Mean Corpuscular Hemoglobin 32, Mean Corpuscular Hemoglobin Concent 33, Red Cell Distribution Width 12.6, Platelet Count 133, Mean Platelet Volume 9.3, Sodium Level 133, Potassium Level 4.3, Chloride Level 101, Carbon Dioxide Level 23, Anion Gap 9, Blood Urea Nitrogen 12, Creatinine 1.01, Estimat Glomerular Filtration Rate > 60, BUN/Creatinine Ratio 12, Glucose Level 115, Calcium Level 8.8, Corrected Calcium 9.0, Total Bilirubin 1.2, Aspartate Amino Transf (AST/SGOT) 16, Alanine Aminotransferase (ALT/SGPT) 13, Alkaline Phosphatase 51, Total Protein 6.8, Albumin 3.7 Discussion & Recommendations Discussion Discharge took over 30 minutes to complete. Discharge instructions were discussed at length with the patient and family. Patient will continue on oral anticoagulation therapy. He'll also continue on medications for PCI. Patient had episode of typical atrial flutter during the pacemaker. Will likely require typical atrial flutter ablation in the future. Patient will have a wound check in my office in one week and follow-up with me in 6-8 weeks. Follow up appt.: Wound check in my office in one week, Follow-up with Dr. Woodard in 6-8 weeks. Dicharge Diet: Cardiac Diet Activity as Tolerated: Yes Home Medications Reviewed patient Home Medication Reconciliation performed by pharmacy medication reconciliations technician submarine cable equipment and/or nursing. Patients Allergies have been reviewed. Discharge Home Medications: Reviewed and agree with Discharge Medication list on patient's Discharge Instruction sheet Condition at discharge Stable. Instructions to patient/family Discussed at length with the patient. Clinical Quality Measures DVT/VTE Risk/Contraindication: Risk Factor Score Per Nursin RFS Level Per Nursing on Admit: 4+=Very High Abraham WOODARD MD December 04, 2018 09:18
[2018-12-04] MEDS ORDERED: CEPH-507 PO (09:20)
--- NOTE | 2018-12-04 09:22 | Discharge Inst-Post Device ---
Discharge Inst-Post Device Follow up/Plan Dr Woodard's RN Supriya for wound check in one week. Dr Woodard in 6-8 weeks Heart Healthy Diet Do not lift arm on side of device placement above head for 4 weeks. Do not push and pull heavy objects for 4 weeks. Activity as tolerated. Leave dressing on until follow up at the office. Abraham WOODARD MD December 04, 2018 09:22
[2018-12-04 10:00] VITALS: BP 99/72
[2018-12-04] MEDS ORDERED: TERAZOSIN 5 MG (HYTRIN) CAPSULE PO SCH (21:00)
[2018-12-04] MEDS ORDERED: MONTELUKAST 10 MG (SINGULAIR) TAB PO SCH (21:00)
== END 2018-12-04 10:00 | disposition home or self-care (01) ==
LOC: CATH 11:03 → 4TH 15:55 → CATH 12-04 10:00
PROVIDERS: ATTEND Internal Medicine Interventional Cardiology
DX: I49.5 Sick sinus syndrome (principal); I48.0 Paroxysmal atrial fibrillation; I48.3 Typical atrial flutter; I25.10 Atherosclerotic heart disease of native coronary artery without angina pectoris; J44.9 Chronic obstructive pulmonary disease, unspecified; E78.5 Hyperlipidemia, unspecified; G47.33 Obstructive sleep apnea (adult) (pediatric); I25.2 Old myocardial infarction; Z95.5 Presence of coronary angioplasty implant and graft; Z79.01 Long term (current) use of anticoagulants; Z79.899 Other long term (current) drug therapy; Z99.81 Dependence on supplemental oxygen; Z87.891 Personal history of nicotine dependence; Z86.73 Personal history of transient ischemic attack (TIA), and cerebral infarction without residual deficits
CPT/HCPCS: 33208; 36415; 71045; 80053; 85027; 85610; 85730; 87081; 93005; 94640; 94664

== ENCOUNTER → 2020-11-17 | Outpatient (CLI) | payer MEDICARE ==
[~2020-11-17] MED LIST changes: +ALPR0.25 PO; +CEPH-507 PO; -FOLI0.4T2 PO; +FOLI0.4T6 PO; -NICO-588 TD; +NICO-685 TD; -OMEP20CA12 PO; +OMEP20CA18 PO; +RT-ALBUTEROL SULF 2.5 MG/3 ML PRE-MIX VIAL INH ONE; +TERA5CAP10 PO; -TERA5CAP3 PO; -WARF1TAB82 PO; +WARF4TAB3 PO; -WARF4TAB70 PO; +WRF1T PO
== END ==
LOC: RT 15:15
PROVIDERS: ATTEND Nurse Practitioner Family
DX: J44.9 Chronic obstructive pulmonary disease, unspecified (principal)
CPT/HCPCS: 94060; 94726; 94729

== ENCOUNTER → 2022-04-16 | Outpatient (CLI) | payer MEDICARE ==
[~2022-04-16] VITALS: Ht 182 cm; Wt 96.0 kg
[~2022-04-16] MED LIST changes: +CATHETER FLUSH 10 ML SYR IVP PRN; +REGADENOSON 0.4 MG/5 ML SYR (LEXISCAN) IV ONE; -RT-ALBUTEROL SULF 2.5 MG/3 ML PRE-MIX VIAL INH ONE
[2022-04-16 09:22] VITALS: BP 118/93
--- NOTE | 2022-04-16 18:35 | STRESS TEST ---
DATE OF SERVICE: 04/16/2022 RESTING AND POST REGADENOSON TECHNETIUM-99M TETROFOSMIN SPECT CT IMAGING ORDERING PHYSICIAN: Dr. Recinos. PRIMARY PHYSICIAN: Dr. Miller. CLINICAL DIAGNOSIS: Coronary artery disease. Baseline images were carried out after injection of 10.15 mCi of technetium-99m Tetrofosmin. This was followed by 0.4 mg Regadenoson and 32 mCi of technetium-99m Tetrofosmin for stress imaging. The electrocardiogram showed atrial fibrillation throughout the study. Some paced ventricular beats were seen. The electrocardiogram did not change significantly with the Regadenoson infusion. The patient noted mild shortness of breath following Regadenoson infusion, which resolved in a few minutes. Review of images at rest and following stress indicate an inferolateral perfusion defect that appears to be predominantly transient. Gated images show a well preserved global left ventricular systolic function without significant regional wall motion abnormality. Left ventricular ejection fraction is calculated to be 64%. CONCLUSIONS: 1. This study is indicative of a moderate amount of inferolateral ischemia. 2. Normal regional wall motion. 3. Normal global left ventricular systolic function with a calculated ejection fraction of 64%. Job ID: [id number] DocumentID: [id number] Dictated Date: 04/16/2022 14:21:49 Physical Therapist Technician Date: 04/16/2022 18:35:12 Dictated By: BELGICA RECINOS MD, MA, FACP, FACC,
== END ==
LOC: CARD 07:55
PROVIDERS: ATTEND Internal Medicine Cardiovascular Disease
DX: I25.10 Atherosclerotic heart disease of native coronary artery without angina pectoris (principal)
CPT/HCPCS: 78452; 93017; A9502

== ENCOUNTER 2022-04-30 09:00 | Day surgery (SDC) | payer MEDICARE ==
[~2022-04-30] VITALS: Ht 182.9 cm; Wt 101.0 kg
[2022-04-30] VITALS (19 sets, daily range): BP systolic 106–135; BP diastolic 70–117
[2022-04-30 07:25] LABS: HEMATOCRIT 47 % (40-54); HEMOGLOBIN 15.4 g/dL (13.3-17.7); MEAN CORPUSCULAR HEMOGLOBIN 31 pg (25-34); MEAN CORPUSCULAR HGB CONC 33 g/dL (32-36); MEAN CORPUSCULAR VOLUME 94 fL (80-99); MEAN PLATELET VOLUME 9.2 fL (9.0-12.2); PLATELET COUNT 212 10^3/uL (130-400); WHITE BLOOD COUNT 7.1 10^3/uL (4.3-11.0)
[2022-04-30 07:33] LABS: ALBUMIN 3.8 GM/DL (3.2-4.5)
[2022-04-30 07:34] LABS: INR 1.5 (0.8-1.4); PROTHROMBIN TIME PATIENT 18.2 SEC (12.2-14.7)
[2022-04-30 07:35] LABS: TOTAL PROTEIN 7.2 GM/DL (6.4-8.2)
[2022-04-30 07:37] LABS: BILIRUBIN,TOTAL 0.6 MG/DL (0.1-1.0)
[2022-04-30 07:39] LABS: CREATININE SERUM 1.38 MG/DL (0.60-1.30)
[~2022-04-30 09:00] MED LIST changes: +BUPR-105 PO; -CATHETER FLUSH 10 ML SYR IVP PRN; +DILT180C84 PO; +DIPH25CA65 PO; +EPTIFIBATIDE BOLUS 20 ML IV ONE; +FINA5TAB6 PO; +HEParin (CATH LAB) 2,000 ML IV ONE; +HEParin 1000 UNIT/ML (10ML VIAL) FOR BOLUS ONE; +LIDOCAINE 1% INJ 30 ML (XYLOCAINE) VIAL ONE; +MIDAZOLAM 2 MG/2 ML (VERSED) VIAL ONE; +NS IV 1000 ML 1,000 ML IV SCH; +NS IV 1000 ML 1,000 ML ONE; -REGADENOSON 0.4 MG/5 ML SYR (LEXISCAN) IV ONE; +TMSL.4C PO; +[UNRECOGNIZED DRUG - CODE] PO; +diphenhydrAMINE 50 MG/ML INJ (BENADRYL) ONE; +fentaNYL INJ 100 MCG/2 ML AMP ONE
[2022-04-30] MEDS ORDERED: CLOPIDOGREL 300 MG (PLAVIX) TABLET PO ONE (09:05)
[2022-04-30] MEDS ORDERED: ASPIRIN 81 MG CHEW (CHILDREN'S ASA) ONE (09:05)
--- NOTE | 2022-04-30 09:40 | Cardiac Procedure Note-CS/ASA ---
Pre-Procedure Note Pre-Op Procedure Note Date of Available H&P: Mar 28, 2022 Date H&P Reviewed: Apr 30, 2022 Time H&P Reviewed: 08:30 History & Physical: H&P Reviewed, Changes noted below Changes from last HP Stress test has shown considerable inferolateral ischemia. Card cath advised. Informed consent obtained for card cath and possible ad hoc or intervention Conscious Sedation Pre-Proced ASA Score 3 For ASA 3 and 4: Consider anesthesia and medical clearance. Also, for patients with a history of failed moderate sedation consider anesthesia. Airway Lungs Heart ASA score ASA 1: a normal healthy patient ASA 2: a patient with a mild systemic disease (mid diabetes, controlled hypertension, obesity ASA 3: a patient with a severe systemic disease that limits activity (angina, COPD, prior Myocardial infarction) ASA 4: a patient with an incapacitating disease that is a constant threat to life (CHF, renal failure) ASA 5: a moribund patient not expected to survive 24 hrs. (ruptured aneurysm) ASA 6: a declared brain- patient whose organs are being harvested. For emergent operations, add the letter E after the classification Mallampati Classification Grade 3 Sedation Plan Analgesia, Amnesia, Plan communicated to team members, Discussed options with patient/fam, Discussed risks with patient/fam The patient is an appropriate candidate to undergo the planned procedure, sedation, and anesthesia. The patient immediately re-assessed prior to indication. BELGICA STEPHENSON MD FACP FAC CCDS Apr 30, 2022 09:40
[2022-04-30] MEDS ORDERED: PATIENT MAY USE OWN MEDS, ALL PO SCH (10:00)
--- NOTE | 2022-04-30 10:01 | CARDIAC CATHETERIZATION ---
DATE OF SERVICE: 04/30/2022 CARDIAC CATHETERIZATION AND CORONARY INTERVENTION REPORT INDICATION FOR PROCEDURE: The patient is an 81-year-old gentleman with known coronary artery disease, who has had stenting and subsequent balloon angioplasty for stent restenosis by Dr. Woodard in the past. The last coronary intervention was in 2019. He has been having shortness of breath. Myocardial perfusion imaging indicated inferolateral ischemia. Cardiac catheterization was recommended. Informed consent was obtained. DESCRIPTION OF PROCEDURE: He was brought to the cardiac catheterization laboratory in a fasting state. Right groin was prepared and draped in the usual sterile fashion. Lidocaine 1% was used for local anesthesia. Modified Seldinger technique was used to advance a 5-Nepalese sheath in the right femoral artery, 5-Nepalese JL4 catheter for left coronary angiography, 5-Nepalese JR4 catheter was used for right coronary angiography, 5-Nepalese pigtail catheter was used for left heart catheterization, and left ventricular angiography was not performed. This was to save contrast because of the patient's chronic kidney disease. PERCUTANEOUS INTERVENTION TO THE LEFT CIRCUMFLEX: The left circumflex was exhibiting greater than 80% stenosis and a stent within the proximal portion of a large first obtuse marginal branch. We exchanged the sheath over a wire for a 6-Nepalese sheath. We used a 6-Nepalese JR4 guide catheter to engage the left coronary artery. We advanced a BMW wire across the lesion and the tip was placed in the distal vessel. We gave 6000 units of intravenous heparin and double bolus of Integrilin during the interventional procedure. We used 3.0 x 30 mm balloon to carry out balloon angioplasty of the stented segment. This reduced the stenosis from greater than 80% to no significant residual. Flow throughout the vessel was normal. He tolerated the procedure well. Angiography of the right femoral artery was carried out through the sheath. Mynx was used to achieve hemostasis. He tolerated the procedure well. HEMODYNAMICS: Left ventricular end-diastolic pressure following coronary angiography was 8 mmHg. There was no significant pressure gradient on pullback across the aortic valve. CORONARY ANGIOGRAPHY: Coronary calcification is seen. Left main coronary artery is free of significant disease. Left anterior descending artery has mild to moderate diffuse plaque. Left circumflex artery had greater than 80% stenosis in the stented portion of the proximal and mid first obtuse marginal to which successful balloon angioplasty was carried out, which reduced the stenosis to no significant residual. The right coronary artery is dominant. It has diffuse mild to moderate plaque. CONCLUSIONS: 1. Coronary artery disease consisting primarily of greater than 80% in-stent restenosis in a large first obtuse marginal branch, to which successful balloon angioplasty was carried out with 3.0 x 30 mm balloon with reduction of stenosis to no significant residual. The rest of the coronary vessels have mild to moderate diffuse disease. 2. Normal left ventricular end-diastolic pressure. DISCUSSION AND RECOMMENDATIONS: Perioperative hydration has been continued, starting before the procedure. It was continued during the procedure and is being continued afterwards. He will be kept in the hospital for overnight observation. Risk factor modification has been reviewed. Job ID: [id number] DocumentID: [id number] Dictated Date: 04/30/2022 09:16:53 Dynamicist Date: 04/30/2022 10:00:54 Dictated By: BELGICA STEPHENSON MD, MA, FACP, FACC, MTDD
[2022-04-30] MEDS: NS IV 1000 ML 1,000 ML IV SCH (16:33)
[2022-05-01] VITALS (8 sets, daily range): BP systolic 96–123; BP diastolic 74–89
[2022-05-01 05:22] LABS: BASOPHILS % (AUTO) 0 % (0-10); EOSINOPHILS # (AUTO) 0.3 10^3/uL (0.0-0.3); EOSINOPHILS % (AUTO) 3 % (0-10); HEMATOCRIT 43 % (40-54); HEMOGLOBIN 13.9 g/dL (13.3-17.7); LYMPHOCYTES # (AUTO) 1.2 10^3/uL (1.0-4.0); LYMPHOCYTES % (AUTO) 14 % (12-44); MEAN CORPUSCULAR HEMOGLOBIN 30 pg (25-34); MEAN CORPUSCULAR HGB CONC 32 g/dL (32-36); MEAN CORPUSCULAR VOLUME 94 fL (80-99); MEAN PLATELET VOLUME 9.3 fL (9.0-12.2); MONOCYTES # (AUTO) 1.1 10^3/uL (0.0-1.0); MONOCYTES % (AUTO) 14 % (0-12); NEUTROPHILS # (AUTO) 5.7 10^3/uL (1.8-7.8); NEUTROPHILS % (AUTO) 69 % (42-75); PLATELET COUNT 176 10^3/uL (130-400); WHITE BLOOD COUNT 8.3 10^3/uL (4.3-11.0)
[2022-05-01 05:38] LABS: POTASSIUM 3.9 MMOL/L (3.6-5.0)
[2022-05-01 05:39] LABS: CALCIUM 8.3 MG/DL (8.5-10.1); INR 1.4 (0.8-1.4); PROTHROMBIN TIME PATIENT 17.5 SEC (12.2-14.7)
[2022-05-01 05:44] LABS: CREATININE SERUM 1.28 MG/DL (0.60-1.30)
[2022-05-01] MEDS: NS IV 1000 ML 1,000 ML IV SCH ×2 (06:13→06:14)
--- NOTE | 2022-05-01 07:47 | Discharge Inst-Cardiology ---
Discharge Inst-Cardiac Discharge Medications Continued Medications: Albuterol Sulfate (Proair Hfa) 1 Puff Puff 2 PUFF IH Q4H PRN for SHORTNESS OF BREATH, INHALER Albuterol Sulfate (Albuterol Sulfate) 2.5 Mg/3 Ml Vial.neb 2.5 MG NEB Q4H PRN for SHORTNESS OF BREATH, EA Alprazolam (Xanax) 0.25 Mg Tablet 0.25 MG PO TID PRN for PRN, TAB Aspirin (Aspir 81) 81 Mg Tablet.dr 81 MG PO AM, TAB Atorvastatin Calcium (Atorvastatin Calcium) 40 Mg Tablet 40 MG PO AM, TAB Bupropion HCl (Bupropion HCl Sr) 150 Mg Tablet.er 150 MG PO AM for Smoking Cessation, TAB Diltiazem HCl (Diltiazem 24Hr Cd) 180 Mg Cap.er.24h 180 MG PO AM, CAP Diphenhydramine HCl (Allergy Medication) 25 Mg Capsule 25 MG PO PM, CAP Famotidine (Acid-Pep) 20 Mg Tablet 20 MG PO BID, TAB Fexofenadine HCl (Estefania Allergy) 180 Mg Tablet 180 MG PO BID, TAB Finasteride (Finasteride) 5 Mg Tablet 5 MG PO AM, TAB Fluticasone Propionate (Fluticasone Propionate) 16 Gm Gray.susp 2 SPRAYS NS BID, EA Guaifenesin (Mucinex) 1,200 Mg Tab.er.12h 1200 MG PO BID, TAB Montelukast Sodium (Singulair) 10 Mg Tablet 10 MG PO PM, TAB Nitroglycerin (Nitroglycerin) 0.4 Mg Tab.subl 0.4 MG SL UD PRN for CHEST PAIN, TAB Omeprazole (Omeprazole) 20 Mg Capsule.dr 20 MG PO PM, CAP Tamsulosin HCl (Flomax) 0.4 Mg Cap 0.4 MG PO PM, CAP Tiotropium Cherry (Spiriva) 1 Inh Aerp 1 CAP IH DAILY, EA Warfarin Sodium (Warfarin Sodium) 2 Mg Tablet 2 MG PO PM, TAB TAKES ALONG WITH 1MG FOR A TOTAL DAILY DOSE OF 3MG Warfarin Sodium (Warfarin Sodium) 1 Mg Tablet 1 MG PO PM, TAB TAKES ALONG WITH 2MG TABLET FOR A TOTAL DAILY DOSE OF 3MG Patient Instructions Patient Instructions: Please schedule follow up appointment to see Dr. Recinos in 1 week Take 6mg of warfarin today and tomorrow, go back to 3 mg starting on Friday. Have INR drawn on Friday, call Dr. Miller for further management. FLORECITA STYLES May 01, 2022 07:47
--- NOTE | 2022-05-01 08:36 | Progress Note - Cardiology ---
Cardiology SOAP Progress Note Subjective: Sitting up on the side of the bed No c/o CP, palpitations, syncope, near syncope Chronic mild SOB which is unchanged No c/o n/v/d No c/o right groin discomfort Objective: I&O/Vital Signs 05/01/22 05/01/22 05/01/22 05/01/22 06:57 07:00 07:00 07:32 Temp 37.0 Pulse 86 91 91 102 Resp 19 19 20 B/P (MAP) 114/75 (88) 114/75 (88) 114/75 (88) Pulse Ox 94 94 94 O2 Delivery Nasal Cannula Nasal Cannula Room Air O2 Flow Rate 3.00 3.00 05/01/22 05/01/22 05/01/22 05/01/22 08:00 08:00 09:00 10:00 Pulse 98 98 87 100 Resp 21 21 22 21 B/P (MAP) 112/76 (88) 112/76 (88) 96/79 (85) 106/88 (94) Pulse Ox 94 95 94 95 O2 Delivery Nasal Cannula Nasal Cannula Nasal Cannula Nasal Cannula O2 Flow Rate 3.00 3.00 3.00 3.00 05/01/22 11:00 Pulse 89 Resp 22 B/P (MAP) 113/83 (93) Pulse Ox 91 O2 Delivery Nasal Cannula O2 Flow Rate 3.00 05/01/22 00:00 Intake Total 537 ml Output Total 1420 ml Balance -883 ml Weight (Pounds): 200 Weight (Ounces): 6.8 Weight (Calculated Kilograms): [id number] Side: right Groin site without hematoma: Yes Condition: DP/PT pulses palpable, extremity w/d/p Bruising: mild bruising Constitutional: AAO x 3, well-developed, well-nourished Respiratory: No accessory muscle use, No respiratory distress; chest expansion is symmetric, chest is bilaterally symmetric, rhonchi (scattered), other (prolonged exp phase) Cardiovascular: irregularly irregular; No JVD; S1 and S2 Gastrointestional: No tender; soft, round, audible bowel sounds Extremities: no lower extremity edema bilateral Neurologic/Psychiatric: grossly intact (moves all extremities) Skin: No rash on exposed areas, No ulcerations on exposed areas Results/Procedures: Labs Laboratory Tests 05/01/22 04:37: White Blood Count 8.3, Red Blood Count 4.61, Hemoglobin 13.9, Hematocrit 43, Mean Corpuscular Volume 94, Mean Corpuscular Hemoglobin 30, Mean Corpuscular Hemoglobin Concent 32, Red Cell Distribution Width 13.5, Platelet Count 176, Mean Platelet Volume 9.3, Immature Granulocyte % (Auto) 1, Neutrophils (%) (Auto) 69, Lymphocytes (%) (Auto) 14, Monocytes (%) (Auto) 14H, Eosinophils (%) (Auto) 3, Basophils (%) (Auto) 0, Neutrophils # (Auto) 5.7, Lymphocytes # (Auto) 1.2, Monocytes # (Auto) 1.1H, Eosinophils # (Auto) 0.3, Basophils # (Auto) 0.0, Immature Granulocyte # (Auto) 0.0, Prothrombin Time 17.5H, INR Comment 1.4, Sodium Level 137, Potassium Level 3.9, Chloride Level 105, Carbon Dioxide Level 21, Anion Gap 11, Blood Urea Nitrogen 14, Creatinine 1.28, Estimat Glomerular Filtration Rate 56, BUN/Creatinine Ratio 11, Glucose Level 102, Calcium Level 8.3L Microbiology 04/30/22 MRSA Screen - Final, Complete MRSA not isolated Procedures S/P cardiac cath with successful coronary intervention A/P: Assessment: CAD: - Coronary angiography 09/03/[address] Woodard showed severe in-stent restenosis of left circumflex artery which was treated successfully with balloon angioplasty. - Echocardiogram was done on 09/18/[address] Woodard which showed moderate LVH with EF of 55-65 percent with no wall motion abnormalities. Mild diastolic dysfunction. Normal RV size and function. Left atrial diameter is 4.2 cm. No significant valvular heart disease - Cardiac cath of 04-30-22: Coronary artery disease consisting primarily of 80% in-stent restenosis and a large first obtuse marginal branch, to which successful balloon angioplasty was carried out with 3.0 x 30 mm balloon with reduction of stenosis to no significant residual. The rest of the coronary vessels have mild to moderate diffuse disease. Normal left ventricular end- diastolic pressure. Chronic atrial fibrillation - Chronic OAC with warfarin, managed by Dr Miller as out pt H/O TIA PAD: - right external iliac stenosis and iatrogenic dissection treated with a stent 09/03/[address] Woodard Symptomatic bradycardia - H/O dual-chamber permanent pacemaker was done on 12/03/[address] Woodard - Functioning normally per interrogation of 02/13/22 Carotid dz: - Mild carotid arterial disease on carotid u/s of 07/18/20 Leg discomfort: - Normal JAMES and TBI on 07/22/2018. Right TBI 0.83, JAMES 0.95. Left TBI 0.85, JAMES 0.94. COPD H/O Tobaccoism: - Quit smoking in 2018 [place] - CPAP tx Plan: S/P cardiac cath on 03-30-22 with successful coronary intervention Continue ASA tx Continue warfarin (patient does not wish to be on NOAC) - sub-therapeutic INR - increase warfarin dose for the next 2 days with INR on Friday then advised him to f/u with Dr. Miller (manages his warfarin as an outpt) Continue all other home medications Advise f/u in 1-2 weeks or sooner if needed FLORECITA STYLES May 01, 2022 08:36
[2022-05-01] MEDS ORDERED: ASPIRIN 81 MG CHEW (CHILDREN'S ASA) ONE (08:40)
[2022-05-01] MEDS ORDERED: ASPIRIN 81 MG CHEW (CHILDREN'S ASA) PO ONE (08:45)
[2022-05-01] MEDS ORDERED: ASPIRIN 81 MG CHEW (CHILDREN'S ASA) PO NR (08:45)
[2022-05-01] MEDS ORDERED: PANTOPRAZOLE 40 MG (PROTONIX) TAB PO SCH (09:00)
[2022-05-01] MEDS ORDERED: CLOPIDOGREL 75 MG (PLAVIX) TABLET PO NR (09:30)
--- NOTE | 2022-05-01 11:41 | Progress Note - Cardiology ---
Cardiology SOAP Progress Note Subjective: No cp or palp or syncope or shortness of breath No n/v/d No focal weakness No groin or leg discomfort Objective: I&O/Vital Signs 05/01/22 05/01/22 05/01/22 05/01/22 00:00 01:00 01:16 04:00 Pulse 79 74 74 83 Resp 21 B/P (MAP) 116/74 (90) 123/89 (98) Pulse Ox 93 90 O2 Delivery Nasal Cannula Nasal Cannula O2 Flow Rate 3.00 3.00 05/01/22 05/01/22 05/01/22 05/01/22 04:00 06:57 07:00 07:00 Pulse 86 91 91 Resp 19 B/P (MAP) 114/75 (88) 114/75 (88) Pulse Ox 97 94 94 O2 Delivery Nasal Cannula Nasal Cannula Nasal Cannula O2 Flow Rate 3.00 3.00 3.00 05/01/22 05/01/22 05/01/22 05/01/22 07:32 08:00 08:00 09:00 Temp 37.0 Pulse 102 98 98 87 Resp 20 B/P (MAP) 114/75 (88) 112/76 (88) 112/76 (88) 96/79 (85) Pulse Ox 94 94 95 94 O2 Delivery Room Air Nasal Cannula Nasal Cannula Nasal Cannula O2 Flow Rate 3.00 3.00 3.00 05/01/22 05/01/22 10:00 11:00 Pulse 100 89 Resp B/P (MAP) 106/88 (94) 113/83 (93) Pulse Ox 95 91 O2 Delivery Nasal Cannula Nasal Cannula O2 Flow Rate 3.00 3.00 05/01/22 00:00 Intake Total 537 ml Output Total 1420 ml Balance -883 ml Weight (Pounds): 200 Weight (Ounces): 6.8 Weight (Calculated Kilograms): 90.193564 Side: right Groin site without hematoma: Yes Condition: DP/PT pulses palpable, extremity w/d/p Bruising: mild bruising Constitutional: AAO x 3, well-developed, well-nourished Respiratory: No accessory muscle use, No respiratory distress; chest expansion is symmetric, chest is bilaterally symmetric, rhonchi (scattered), other (prolonged exp phase) Cardiovascular: irregularly irregular; No JVD; S1 and S2 Gastrointestional: No tender; soft, round, audible bowel sounds Extremities: no lower extremity edema bilateral Neurologic/Psychiatric: grossly intact (moves all extremities) Skin: No rash on exposed areas, No ulcerations on exposed areas Results/Procedures: Labs Laboratory Tests 05/01/22 04:37: White Blood Count 8.3, Red Blood Count 4.61, Hemoglobin 13.9, Hematocrit 43, Mean Corpuscular Volume 94, Mean Corpuscular Hemoglobin 30, Mean Corpuscular Hemoglobin Concent 32, Red Cell Distribution Width 13.5, Platelet Count 176, Mean Platelet Volume 9.3, Immature Granulocyte % (Auto) 1, Neutrophils (%) (Auto) 69, Lymphocytes (%) (Auto) 14, Monocytes (%) (Auto) 14H, Eosinophils (%) (Auto) 3, Basophils (%) (Auto) 0, Neutrophils # (Auto) 5.7, Lymphocytes # (Auto) 1.2, Monocytes # (Auto) 1.1H, Eosinophils # (Auto) 0.3, Basophils # (Auto) 0.0, Immature Granulocyte # (Auto) 0.0, Prothrombin Time 17.5H, INR Comment 1.4, Sod ium Level 137, Potassium Level 3.9, Chloride Level 105, Carbon Dioxide Level 21, Anion Gap 11, Blood Urea Nitrogen 14, Creatinine 1.28, Estimat Glomerular Filtration Rate 56, BUN/Creatinine Ratio 11, Glucose Level 102, Calcium Level 8.3L Microbiology 04/30/22 MRSA Screen - Final, Complete MRSA not isolated Laboratory Tests 04/30/22 07:21 05/01/22 04:37 A/P: Assessment: CAD: - Coronary angiography 09/03/[address] Woodard showed severe in-stent restenosis of left circumflex artery which was treated successfully with balloon angioplasty. - Echocardiogram was done on 09/18/[address] Woodard which showed moderate LVH with EF of 55-65 percent with no wall motion abnormalities. Mild diastolic dysfunction. Normal RV size and function. Left atrial diameter is 4.2 cm. No significant valvular heart disease - Cardiac cath of 04-30-22: Coronary artery disease consisting primarily of 80% in-stent restenosis and a large first obtuse marginal branch, to which successful balloon angioplasty was carried out with 3.0 x 30 mm balloon with reduction of stenosis to no significant residual. The rest of the coronary vessels have mild to moderate diffuse disease. Normal left ventricular end- diastolic pressure. Chronic atrial fibrillation - Chronic OAC with warfarin, managed by Dr Miller as out pt H/O TIA PAD: - right external iliac stenosis and iatrogenic dissection treated with a stent 09/03/[address] Woodard Symptomatic bradycardia - H/O dual-chamber permanent pacemaker was done on 12/03/[address] Woodard - Functioning normally per interrogation of 02/13/22 Carotid dz: - Mild carotid arterial disease on carotid u/s of 07/18/20 Leg discomfort: - Normal JAMES and TBI on 07/22/2018. Right TBI 0.83, JAMES 0.95. Left TBI 0.85, JAMES 0.94. COPD H/O Tobaccoism: - Quit smoking in 2018 [place] - CPAP tx Plan: S/P cardiac cath on 03-30-22 with successful coronary intervention. I discussed the details of cath and intervention with him and answered questions Continue ASA tx Continue warfarin (patient does not wish to be on NOAC) - sub-therapeutic INR - increase warfarin dose for the next 2 days with INR on Friday then advised him to f/u with Dr. Miller (manages his warfarin as an outpt) Continue all other home medications Advise f/u in 1-2 weeks or sooner if needed BELGICA STEPHENSON MD FACP FAC [facility]S May 01, 2022 11:41
== END 2022-05-01 12:00 | disposition home or self-care (01) ==
LOC: CATH 09:00 → CSD 09:37 → CATH 05-01 12:00
PROVIDERS: ATTEND Internal Medicine Cardiovascular Disease
DX: I25.10 Atherosclerotic heart disease of native coronary artery without angina pectoris (principal); T82.855A Stenosis of coronary artery stent, initial encounter; E66.9 Obesity, unspecified; Z68.30 Body mass index [BMI] 30.0-30.9, adult; Z87.891 Personal history of nicotine dependence
CPT/HCPCS: 80048; 80053; 80061; 85025; 85027; 85610 ×2; 85730; 87081; 92920; 93005; 93458; C1725; C1760; C1769; C1887; C1894 ×2; 36415

== ENCOUNTER 2022-06-06 14:26 | Outpatient (CLI) | payer MEDICARE ==
[~2022-06-06] VITALS: Ht 182.9 cm; Wt 97.7 kg
[~2022-06-06 14:26] MED LIST changes: +ALBU8.5H6 IH; -EPTIFIBATIDE BOLUS 20 ML IV ONE; -HEParin (CATH LAB) 2,000 ML IV ONE; -HEParin 1000 UNIT/ML (10ML VIAL) FOR BOLUS ONE; -LIDOCAINE 1% INJ 30 ML (XYLOCAINE) VIAL ONE; -MIDAZOLAM 2 MG/2 ML (VERSED) VIAL ONE; -NS IV 1000 ML 1,000 ML IV SCH; -NS IV 1000 ML 1,000 ML ONE; -RT-ALBUINH IH; -diphenhydrAMINE 50 MG/ML INJ (BENADRYL) ONE; -fentaNYL INJ 100 MCG/2 ML AMP ONE
== END 2022-06-06 15:01 | disposition home or self-care (01) ==
LOC: PREOP 14:26
PROVIDERS: ATTEND Specialist
DX: Z01.818 Encounter for other preprocedural examination (principal)

== ENCOUNTER 2022-06-07 09:27 | Day surgery (SDC) | payer MEDICARE ==
[~2022-06-07] VITALS: Ht 182.9 cm; Wt 97.7 kg
[2022-06-07] MEDS ORDERED: PHENYLEPHRINE 10% OPHTH (NEO-SYN) 5 ML BTL OU PRN (10:00)
[2022-06-07] MEDS ORDERED: TETRACAINE 0.5% OPHTH SOLN 4 ML BTL (SINGLE DOSE ONLY) OU PRN (10:00)
[2022-06-07] MEDS ORDERED: TROPICAMIDE 1% OPH SOLN (MYDRIACYL) 15 ML BTL OU PRN (10:00)
[2022-06-07 10:01] VITALS: BP 101/78
--- NOTE | 2022-06-07 10:29 | Ophthalmologist Pre-Op Note ---
Pre-Operative Progress Note H&P Reviewed The H&P was reviewed, patient examined and no changes noted. Date H&P Reviewed: Jun 07, 2022 Time H&P Reviewed: 10:11 Pre-Op Dx Secondary Cataract, Right Eye DEANNA MIRELES MD Jun 07, 2022 10:29
--- NOTE | 2022-06-07 10:30 | Ophthalmology Operative Report ---
YAG Capsulotomy PREOPERATIVE DIAGNOSIS: Secondary Cataract Left Eye POSTOPERATIVE DIAGNOSIS: Secondary Cataract Left Eye PROCEDURE: YAG Capsulotomy, left eye SURGEON: Ian Mireles ANESTHESIA: Topical anesthesia COMPLICATIONS: None ESTIMATED BLOOD LOSS: Minimal DESCRIPTION OF PROCEDURE: After proper informed consent was obtained, the patient's, a 81 male left eye received one drop of Tropicamide and one drop of Tetracaine. The patient was then placed at the YAG laser and using a power of [4.5 ] millijoules and [19 ] bursts were used to fashion a central capsulotomy. The patient tolerated the procedure well without complications. IAN MIRELES MD Jun 07, 2022 10:30
== END 2022-06-07 10:10 | disposition home or self-care (01) ==
LOC: SDC 09:27 → EDSTATUS 14:30
PROVIDERS: ATTEND Specialist
DX: H26.40 Unspecified secondary cataract (principal); Z87.891 Personal history of nicotine dependence; Z95.5 Presence of coronary angioplasty implant and graft